=== PATIENT | male | born 1950 | race Two or more races ===

== ENCOUNTER 2018-09-21 09:00 | Inpatient (IN) | payer OTHER ==
[~2018-09-21] VITALS: Ht 172.7 cm; Wt 65.4 kg
[2018-09-21] VITALS (8 sets, daily range): BP systolic 84–116; BP diastolic 55–66
[2018-09-21] MEDS ORDERED: MIDAZOLAM DRIP 50 mg/50mL 50 ML IV ONE (09:02)
[2018-09-21] MEDS: MIDAZOLAM DRIP 50 mg/50mL 50 ML IV SCH (09:03)
[2018-09-21] MEDS ORDERED: NOREPINEPHRINE 8 MG/250ML KIT 250 ML IV ONE (09:07)
[2018-09-21] MEDS: NOREPINEPHRINE 8 MG/250ML KIT 250 ML IV SCH (09:15)
[2018-09-21] MEDS ORDERED: SODIUM CHLORIDE 0.9% 1,000 ML IV ONE (09:40)
[2018-09-21] MEDS ORDERED: PROPOFOL 100 ML IV ONE (10:02)
[2018-09-21] MEDS: PROPOFOL 100 ML IV SCH (10:16)
[2018-09-21 10:57] LABS: Hematocrit 38.2 % (41.0-53.0); Hemoglobin 12.6 g/dL (13.5-17.5); Mean Corpuscular Hemoglobin 33.4 pg (28.0-32.0); Mean Corpuscular Volume 101.2 fL (80.0-100.0); Platelet Count (auto) 321 10^3/uL (140-450); Red Blood Cells 3.77 10^6/uL (4.5-5.90); Red Cell Distribution Width 13.7 % (11.8-14.3)
[2018-09-21] MEDS ORDERED: PIPERACILLIN-TAZOB 3.375GM 100 ML IV ONE (11:00)
[2018-09-21] MEDS ORDERED: VANCOMYCIN 1GM/250ML 250 ML IV ONE (11:00)
[2018-09-21] MEDS ORDERED: ALBUTEROL SULF 2.5 MG/0.5ML(0.5%) NEB SOLN NEB ONE (11:00)
[2018-09-21] MEDS ORDERED: IPRATROPIUM BROM 0.5 MG/2.5ML INH SOL NEB ONE (11:00)
[2018-09-21] MEDS ORDERED: methylPREDNISolone SOD SUCC 125 MG/2 ML VL IV ONE (11:00)
[2018-09-21 11:03] LABS: Basophils % (manual) 0 (0.0-2.0); Blast Cells 0; Eosinophils % (manual) 0 (0-7); Myelocytes % 0; Promyelocytes % 0; Reactive Lymphocytes 0
[2018-09-21 11:05] LABS: Urine Bacteria FEW /hpf (None Seen); Urine Blood Negative /uL (Negative); Urine Hyaline Cast MANY /lpf (0 - 2); Urine Mucus FEW (None Seen); Urine Specific Gravity 1.017 (1.001-1.035); Urine WBC 6 /hpf (0 - 3)
[2018-09-21 11:08] LABS: Calcium 8.3 mg/dL (8.5-10.1); Magnesium 2.5 mg/dL (1.6-2.6)
[2018-09-21 11:14] LABS: BUN/Creatinine Ratio 23.2; Bilirubin, Total 0.2 mg/dL (0.2-1.0); Total Protein 6.3 g/dL (6.4-8.2)
[2018-09-21] MEDS: ALBUTEROL SULF 2.5 MG/0.5ML(0.5%) NEB SOLN NEB SCH ×2 (11:30→18:29)
[2018-09-21] MEDS: IPRATROPIUM BROM 0.5 MG/2.5ML INH SOL NEB SCH ×2 (11:30→18:29)
[2018-09-21] MEDS ORDERED: SODIUM CHLORIDE 0.9% 2,000 ML IV ONE (12:00)
[2018-09-21] MEDS: PIPERACILLIN-TAZOB 3.375GM 100 ML IV SCH ×2 (12:00→18:23)
[2018-09-21] MEDS ORDERED: MORPHINE SULFATE 4 MG/ML SYR/VIAL IV PRN ×3 (12:00)
[2018-09-21] MEDS ORDERED: ALBUTEROL SULF 2.5 MG/0.5ML(0.5%) NEB SOLN NEB PRN (12:00)
[2018-09-21] MEDS ORDERED: ACYCLOVIR 5MG/KG Q8HR PER RX 0 ML IV SCH (12:00)
[2018-09-21] MEDS ORDERED: NITROGLYCERIN 0.4 MG SL TAB SL PRN (12:00)
[2018-09-21] MEDS ORDERED: BACTRIM 5MG/KG Q8HR PER RX 0 ML IV SCH (12:00)
[2018-09-21] MEDS ORDERED: OSELTAMIVIR 75MG/5ML ORAL SUSP GT ONE (12:00)
[2018-09-21] MEDS ORDERED: VANCOMYCIN PER PHARMACY 0 MG IV SCH (12:00)
[2018-09-21] MEDS: methylPREDNISolone SOD SUCC 40 MG/ML VL IV SCH ×2 (12:00→18:23)
[2018-09-21] MEDS ORDERED: PROMETHAZINE HCL 25 MG/ML 1ML IV PRN (12:00)
[2018-09-21] MEDS ORDERED: IPRATROPIUM BROM 0.5 MG/2.5ML INH SOL ONE (12:04)
[2018-09-21] MEDS ORDERED: ALBUTEROL SULF 2.5 MG/0.5ML(0.5%) NEB SOLN ONE (12:04)
[2018-09-21 12:22] LABS: Band Neutrophils % (manual) 24; Lymphocytes % (manual) 14 (10.0-50.0); Metamyelocytes % 5; Monocytes % (manual) 23 (0-12)
[2018-09-21] MEDS: FLUCONAZOLE 200MG/100ML 100 ML IV SCH ×2 (13:28→14:24)
[2018-09-21] MEDS: SODIUM CHLORIDE 0.9% 1,000 ML IV SCH ×2 (13:59→23:49)
[2018-09-21] MEDS: SULFAMETH-TRIMETH 80/16MG-ML 25 ML in D5W 5% 500 ML IV SCH ×2 (14:10→22:00)
[2018-09-21] MEDS ORDERED: ACYCLOVIR SOD IV SCH ×2 (16:00)
[2018-09-21] MEDS ORDERED: D5W 5% IV SCH ×2 (16:00)
[2018-09-21] MEDS ORDERED: D5W 5% IV ONE (16:01)
[2018-09-21] MEDS ORDERED: ACYCLOVIR SOD IV ONE (16:01)
[2018-09-21] MEDS: VANCOMYCIN 1,500 MG in D5W 5% 250 ML IV SCH (17:10)
[2018-09-21] MEDS: OSELTAMIVIR 75MG/5ML ORAL SUSP GT SCH (22:00)
[2018-09-22] VITALS (12 sets, daily range): BP systolic 96–114; BP diastolic 55–67
[2018-09-22] MEDS: ALBUTEROL SULF 2.5 MG/0.5ML(0.5%) NEB SOLN NEB SCH ×4 (00:26→19:29)
[2018-09-22] MEDS: IPRATROPIUM BROM 0.5 MG/2.5ML INH SOL NEB SCH ×4 (00:26→19:29)
[2018-09-22] MEDS: PIPERACILLIN-TAZOB 3.375GM 100 ML IV SCH ×4 (01:03→18:17)
[2018-09-22] MEDS: ACYCLOVIR SOD IV SCH ×2 (04:11→15:59)
[2018-09-22] MEDS: SODIUM CHLORIDE 0.9% 1,000 ML IV SCH ×3 (04:11→22:29)
[2018-09-22] MEDS: D5W 5% IV SCH ×2 (04:11→15:59)
[2018-09-22] MEDS: methylPREDNISolone SOD SUCC 40 MG/ML VL IV SCH ×4 (05:44→17:33)
[2018-09-22] MEDS: SULFAMETH-TRIMETH 80/16MG-ML 25 ML in D5W 5% 500 ML IV SCH ×3 (05:44→22:29)
[2018-09-22 06:35] LABS: Hemoglobin 9.8 g/dL (13.5-17.5); White Blood Cell 2.7 10^3/uL (4.4-10.8)
[2018-09-22 06:39] LABS: Hematocrit 28.7 % (41.0-53.0); Mean Corpuscular Hemoglobin 34.1 pg (28.0-32.0); Mean Corpuscular Hgb Conc. 34.3 g/dL (32.0-36.0); Mean Corpuscular Volume 99.4 fL (80.0-100.0); Platelet Count (auto) 171 10^3/uL (140-450); Red Blood Cells 2.88 10^6/uL (4.5-5.90); Red Cell Distribution Width 13.7 % (11.8-14.3)
[2018-09-22 06:46] LABS: Basophils % (manual) 0 (0.0-2.0); Blast Cells 0; Eosinophils % (manual) 0 (0-7); Promyelocytes % 0; Reactive Lymphocytes 0
[2018-09-22 06:49] LABS: Albumin 2.2 g/dL (3.4-5.0); Potassium 4.1 mmol/L (3.5-5.1)
[2018-09-22 06:55] LABS: Bilirubin, Total 0.2 mg/dL (0.2-1.0); Total Protein 5.2 g/dL (6.4-8.2)
[2018-09-22 07:10] LABS: Band Neutrophils % (manual) 13; Lymphocytes % (manual) 10 (10.0-50.0); Monocytes % (manual) 25 (0-12)
[2018-09-22 07:11] LABS: Metamyelocytes % 8; Myelocytes % 7
[2018-09-22] MEDS: NOREPINEPHRINE 8 MG/250ML KIT 250 ML IV SCH ×2 (09:48→22:00)
[2018-09-22] MEDS: MIDAZOLAM DRIP 50 mg/50mL 50 ML IV SCH ×2 (09:48→20:10)
[2018-09-22] MEDS: OSELTAMIVIR 75MG/5ML ORAL SUSP GT SCH ×2 (09:49→22:00)
[2018-09-22] MEDS: FLUCONAZOLE 200MG/100ML 100 ML IV SCH ×2 (10:07→11:03)
[2018-09-22] MEDS: ENOXAPARIN SOD 40 MG/0.4 ML SYRINGE SC SCH (10:10)
[2018-09-22] MEDS: PROPOFOL 100 ML IV SCH (10:10)
[2018-09-22] MEDS ORDERED: DEXTROSE (50%) 50ML SYRG IV PRN (12:00)
[2018-09-22] MEDS: AZITHROMYCIN 500MG/ 250ML 250 ML IV SCH (12:09)
[2018-09-22] MEDS: ACCU-CHEK COMFORT CURVE STRIP VI SCH ×2 (12:26→17:33)
[2018-09-22] MEDS: InsuLIN REG 1unit/0.01ml Soln (100units/ml) SC SCH ×2 (12:26→17:33)
[2018-09-22] MEDS: VANCOMYCIN 1,500 MG in D5W 5% 250 ML IV SCH (17:22)
[2018-09-23] VITALS (33 sets, daily range): BP systolic 86–112; BP diastolic 42–68
[2018-09-23] MEDS: IPRATROPIUM BROM 0.5 MG/2.5ML INH SOL NEB SCH ×3 (00:10→18:55)
[2018-09-23] MEDS: ALBUTEROL SULF 2.5 MG/0.5ML(0.5%) NEB SOLN NEB SCH ×3 (00:10→18:55)
[2018-09-23] MEDS: PIPERACILLIN-TAZOB 3.375GM 100 ML IV SCH ×4 (00:14→18:50)
[2018-09-23] MEDS: methylPREDNISolone SOD SUCC 40 MG/ML VL IV SCH ×5 (00:14→18:50)
[2018-09-23] MEDS: ACCU-CHEK COMFORT CURVE STRIP VI SCH ×5 (00:14→23:54)
[2018-09-23] MEDS: PROPOFOL 100 ML IV SCH ×2 (00:50→19:56)
[2018-09-23] MEDS: MIDAZOLAM DRIP 50 mg/50mL 50 ML IV SCH ×2 (02:23→19:57)
[2018-09-23] MEDS: ACYCLOVIR SOD IV SCH ×2 (04:20→16:09)
[2018-09-23] MEDS: D5W 5% IV SCH ×2 (04:20→16:09)
[2018-09-23] MEDS: SODIUM CHLORIDE 0.9% 1,000 ML IV SCH ×3 (05:44→20:00)
[2018-09-23] MEDS: SULFAMETH-TRIMETH 80/16MG-ML 25 ML in D5W 5% 500 ML IV SCH ×3 (06:06→22:29)
[2018-09-23] MEDS: InsuLIN REG 1unit/0.01ml Soln (100units/ml) SC SCH ×4 (06:16→17:59)
[2018-09-23 07:46] LABS: Albumin 1.8 g/dL (3.4-5.0); BUN/Creatinine Ratio 17.1; Calcium 6.1 mg/dL (8.5-10.1); Potassium 4.1 mmol/L (3.5-5.1)
[2018-09-23 07:49] LABS: Bilirubin, Total 0.2 mg/dL (0.2-1.0); Total Protein 4.5 g/dL (6.4-8.2)
[2018-09-23 08:01] LABS: Hemoglobin 8.2 g/dL (13.5-17.5); Mean Corpuscular Hemoglobin 34.8 pg (28.0-32.0); Mean Corpuscular Hgb Conc. 35.8 g/dL (32.0-36.0); Mean Corpuscular Volume 97.4 fL (80.0-100.0); Platelet Count (auto) 143 10^3/uL (140-450); Red Blood Cells 2.37 10^6/uL (4.5-5.90); White Blood Cell 2.1 10^3/uL (4.4-10.8)
[2018-09-23 08:06] LABS: Basophils % (manual) 0 (0.0-2.0); Blast Cells 0; Eosinophils % (manual) 0 (0-7); Promyelocytes % 0; Reactive Lymphocytes 0
[2018-09-23] MEDS ORDERED: ALLO100T PO (09:42)
[2018-09-23] MEDS ORDERED: MAGN400T5 PO (09:42)
[2018-09-23] MEDS ORDERED: [UNRECOGNIZED DRUG - CODE] EACHEYE (09:42)
[2018-09-23] MEDS ORDERED: AZIT250T7 PO (09:42)
[2018-09-23] MEDS ORDERED: LATA0.0015 LEFTEYE (09:42)
[2018-09-23] MEDS ORDERED: POSA1TAB PO (09:42)
[2018-09-23] MEDS ORDERED: ESCI5TAB PO (09:42)
[2018-09-23] MEDS ORDERED: CETI10CA PO (09:42)
[2018-09-23] MEDS ORDERED: TACR0.5C15 OR (09:42)
[2018-09-23] MEDS ORDERED: MYCO180T PO (09:42)
[2018-09-23] MEDS ORDERED: PRAV20TA3 PO (09:42)
[2018-09-23] MEDS ORDERED: PANT1INJ3 PO (09:42)
[2018-09-23] MEDS ORDERED: AML5T PO (09:42)
[2018-09-23] MEDS ORDERED: VALG1TAB PO (09:42)
[2018-09-23] MEDS ORDERED: METO10TA3 PO (09:42)
[2018-09-23] MEDS ORDERED: CALC-485 PO (09:42)
[2018-09-23] MEDS: FLUCONAZOLE 200MG/100ML 100 ML IV SCH ×2 (09:50→11:07)
[2018-09-23] MEDS: ENOXAPARIN SOD 40 MG/0.4 ML SYRINGE SC SCH (09:50)
[2018-09-23] MEDS: AZITHROMYCIN 500MG/ 250ML 250 ML IV SCH (09:50)
[2018-09-23] MEDS ORDERED: TACROLIMUS 0.5 MG CAP NG SCH (10:00)
[2018-09-23] MEDS: LINEZOLID 600MG/300ML 300 ML IV SCH ×2 (10:13→22:31)
--- NOTE | 2018-09-23 13:42 | NUR ---
NUTRITION ASSESSMENT NOTES Please refer to link notes of nutrition screen form filed under the intervention section of the plan of care for further details. Est. Needs based on IBW (70 kg): 1750 kcal to 2100 kcal (25-30 kcal/kgIBW), 70 gms to 98 gms pro (1.0-1.4 gms/kgIBW d/t severe hypoalbuminemia). Will continue to monitor pertinent labs and reassess nutrient need prn Thank you. Addendum: 09/23/18 at [address] Amended: Links added.
[2018-09-23 13:53] LABS: Band Neutrophils % (manual) 25; Lymphocytes % (manual) 13 (10.0-50.0); Myelocytes % 5
[2018-09-23 13:54] LABS: Metamyelocytes % 8; Monocytes % (manual) 15 (0-12)
[2018-09-23] MEDS: LATANOPROST 0.005 % OPTH(EYE) SOL 2.5ML LEFTEYE SCH (18:00)
[2018-09-23] MEDS ORDERED: LATANOPROST LEFTEYE SCH (18:00)
--- NOTE | 2018-09-23 18:30 | NUR ---
Admit to ICU from ER on vent TIA VARGHESE admitted to ICU via gurney on patient monitor, intubated and being bagged by Respiratory Therapist. Patient transferred to bed 109, connected to mechanical ventilator by therapist, JENNIFER at bedside. Patient connected to ICU monitoring, sinus rhythm 80's, weighed by bedscale, oriented to Adri Whitehead primary RN, unit, ventilator and sedation. Lungs clear but diminished anteriorly. Brown thick sputum noted in oral cavity. Patient tolerating vent, but respiratory rate increased to 30's despite sedation. Pupils reactive to light but no cough or gag noted at this time. Bowel sounds noted. See skin assessment. Optifoam placed on sacrum, SCD's on bilateral lower extremities with heels elevated on pillows. Bed locked in lowest position with call light within reach. Continue to monitor.
--- NOTE | 2018-09-23 18:40 | NUR ---
WOUND CARE Patient has pressure area on sacrum and back. Photo's taken and wound care consult placed. Patient repositioned on side.
--- NOTE | 2018-09-23 19:35 | NUR ---
INITIAL CONTACT ASSUMED CARE OF PATIENT PATIENT RECEIVED LAYING ON BED ON MECHANICAL VENTILATION AND SEDATED ON VERSED AND PROPOFOL. PATIENT DOES NOT RESPOND TO STIMULATION AT THIS TIME. HYPOACTIVE COUGH/GAG NOTED. HOB ELEVATED TO 45 DEGREES FOR ASPIRATION PRECAUTIONS/VAP PROTOCOL. VITAL SIGNS SHOW HYPOTENSION. VENTILATOR PLUGGED INTO RED OUTLET, AMBU BAG AT BEDSIDE, ETT SECURED WITH ANCHOR FAST BLANCA, ORAL CARE AND SUCTION PROVIDED, NOTED TRIPLE LUMEN PICC TO RIGHT IJ, PATENT AND INTACT W/NO S/S OF INFILTRATION OR PHLEBITIS, RUNNING MULTIPLE IV INFUSIONS, REFER TO IV SPREADSHEET FOR TITRATION SPECIFICS. NOTED 20 G IV RIGHT HAND, HEP LOCKED AND 22 G IV LEFT HAND, PATENT, INTACT AND ASYMPTOMATIC FLUSHED WITH 10 CC SALINE FLUSH. PETERS CATHETER INTACT AND DRAINING TO GRAVITY. OG TUBE AUSCULTATED AND IN PLACE. NO INDICATION OF PAIN AT THIS TIME. NO S/S OF DISTRESS NOTED. BED IN LOWEST LOCKED POSITION, SIDE RAILS UP X 2. PATIENT IN FULL VIEW OF NURSES STATION, SAFETY MAINTAINED, WILL CONTINUE TO MONITOR
--- NOTE | 2018-09-23 19:38 | NUR ---
REPORT Report given to Cate CORBETT, care endorsed.
--- NOTE | 2018-09-23 21:00 | NUR ---
FAMILY AT BEDSIDE DISCUSSED PLAN OF CARE WITH FAMILY ALL QUESTIONS AND CONCERNS WERE ADDRESSED
[2018-09-23] MEDS: MYCOPHENOLATE 180 MG PO SCH (22:00)
[2018-09-23] MEDS ORDERED: KETOTIFEN FUMARATE EACHEYE SCH (22:00)
[2018-09-23] MEDS ORDERED: MYCOPHENOLATE SODIUM 180 MG PO SCH (22:00)
[2018-09-23] MEDS: KETOTIFEN 0.025% OP SCH (22:30)
--- NOTE | 2018-09-23 22:31 | NUR ---
MEDICATION HELD MYCOPHENOLATE HELD, MEDICATION CANNOT BE CRUSHED OPENED OR CHEWED PATIENT IS INTUBATED/SEDATED AT THIS TIME, ONLY ACCESS TO OG TUBE UNABLE TO ADMINISTER
[2018-09-24] VITALS (85 sets, daily range): BP systolic 66–130; BP diastolic 34–86
[2018-09-24] MEDS: InsuLIN REG 1unit/0.01ml Soln (100units/ml) SC SCH ×5 (00:03→23:53)
[2018-09-24] MEDS: PIPERACILLIN-TAZOB 3.375GM 100 ML IV SCH ×3 (00:12→11:26)
[2018-09-24] MEDS: IPRATROPIUM BROM 0.5 MG/2.5ML INH SOL NEB SCH ×4 (00:19→18:30)
[2018-09-24] MEDS: ALBUTEROL SULF 2.5 MG/0.5ML(0.5%) NEB SOLN NEB SCH ×4 (00:19→18:30)
[2018-09-24] MEDS: NOREPINEPHRINE 8 MG/250ML KIT 250 ML IV SCH ×4 (00:35→18:30)
--- NOTE | 2018-09-24 02:00 | NUR ---
Patient bathe/linen change Patient given complete bath. Skin integrity assessed for any changes. Linens changed. Patient repositioned for comfort. Gown change. Noted scrotal edema, arms bilateral wheeping, ABD LRQ wheeping, additional chucks were place under both arms. all canisters, suction tubing were replaced. patient does not appear to be in distress at this time. Safety maintained, will continue to monitor
[2018-09-24] MEDS: SODIUM CHLORIDE 0.9% 1,000 ML IV SCH ×3 (02:15→19:57)
[2018-09-24] MEDS: MIDAZOLAM DRIP 50 mg/50mL 50 ML IV SCH ×4 (02:15→22:00)
[2018-09-24 03:52] LABS: Hematocrit 24.8 % (41.0-53.0); Hemoglobin 8.6 g/dL (13.5-17.5); Mean Corpuscular Hemoglobin 33.9 pg (28.0-32.0); Mean Corpuscular Hgb Conc. 34.9 g/dL (32.0-36.0); Mean Corpuscular Volume 97.4 fL (80.0-100.0); Platelet Count (auto) 184 10^3/uL (140-450); Red Blood Cells 2.55 10^6/uL (4.5-5.90); Red Cell Distribution Width 14.1 % (11.8-14.3); White Blood Cell 3.3 10^3/uL (4.4-10.8)
--- NOTE | 2018-09-24 03:55 | NUR ---
CALL PLACED TO DR. HENRY SPOKE TO DUE TO PT ABG PC02 OF 53.4 QUESTION TO IS SHOULD WE INCREASE THE TIDAL VOLUME TO [address] Emery. IF PATIENT IS NOT IN DISTRESS DO NOT INCREASE THE TV. VENT SETTINGS TO REMAIN IS.
[2018-09-24 04:13] LABS: Potassium 4.5 mmol/L (3.5-5.1)
[2018-09-24 04:23] LABS: Albumin 2.1 g/dL (3.4-5.0); BUN/Creatinine Ratio 16.2; Bilirubin, Total 0.2 mg/dL (0.2-1.0); Total Protein 4.9 g/dL (6.4-8.2)
[2018-09-24 04:35] LABS: Basophils % (manual) 0 (0.0-2.0); Blast Cells 0; Promyelocytes % 0; Reactive Lymphocytes 0
--- NOTE | 2018-09-24 04:40 | NUR ---
CALL RECEIVED FROM DR. RIDLEY PER TIDAL VOLUME IS TO BE INCREASED TO 500, ORDER STAT X-RAY AND REPEAT THE ABG IN TWO HOURS
--- NOTE | 2018-09-24 04:48 | NUR ---
Respiratory note: CHELLE DUENAS SPOKE ON PHONE WITH DR. RIDLEY. GAVE ORDER TO INCREASE THE TIDAL VOLUME TO 500. ABG IN TWO HOURS AFTER CHANGE IS MADE.
[2018-09-24] MEDS: ACYCLOVIR SOD IV SCH (05:03)
[2018-09-24] MEDS: D5W 5% IV SCH (05:03)
[2018-09-24 06:46] LABS: Band Neutrophils % (manual) 17; Eosinophils % (manual) 1 (0-7); Lymphocytes % (manual) 2 (10.0-50.0); Metamyelocytes % 1; Monocytes % (manual) 7 (0-12); Myelocytes % 1
[2018-09-24] MEDS: SULFAMETH-TRIMETH 80/16MG-ML 25 ML in D5W 5% 500 ML IV SCH ×3 (07:00→22:35)
[2018-09-24] MEDS: methylPREDNISolone SOD SUCC 40 MG/ML VL IV SCH ×3 (07:00→18:04)
--- NOTE | 2018-09-24 07:35 | NUR ---
OPENING SHIFT NOTE Report received from Cate CORBETT, care assumed. Patient is intubated on ventilator. Pupils brisk and reactive to light, cough/gag hypoactive. Temp 98.4 rectally. Sedation: Versed and Diprivan. Pulses palpable, sinus rhythm 90's bedside monitor. Blood pressure stable on Levophed gtt 15 mcg. Edema on upper and lower extremities. SCD's on bilateral lower extremities, heels elevated on pillows. Lungs clear/diminished anteriorly. Tolerating vent at this time, oxygenation 98%. Bowel sounds noted, Hernandez catheter patent, hung below bladder. See skin assessment. Central line TLC noted right IJ. Bed locked in lowest position with call light within reach. Alarms in place. Continue to monitor.
[2018-09-24] MEDS: ACCU-CHEK COMFORT CURVE STRIP VI SCH ×4 (07:40→23:41)
--- NOTE | 2018-09-24 08:00 | NUR ---
RT Respiratory therapist at bedside for follow up ABG.
--- NOTE | 2018-09-24 08:03 | NUR ---
URINE SAMPLE Night CHELLE Esposito walking urine creatinine and sodium to lab due to bullet system being down.
--- NOTE | 2018-09-24 08:44 | NUR ---
PULMONOLOGY PAGED Dr. Arnoldo Valderrama paged to notify of ABG and chest x-ray results. Awaiting call back.
[2018-09-24 08:53] LABS: Protein, Urine 85.9 mg/dL (0.0-11.9)
[2018-09-24] MEDS ORDERED: IPRIH INH (09:06)
[2018-09-24] MEDS ORDERED: IPRAAER6 IN (09:06)
--- NOTE | 2018-09-24 09:07 | NUR ---
FAMILY and sister at bedside. All questions addressed
[2018-09-24] MEDS: FLUCONAZOLE 200MG/100ML 100 ML IV SCH ×2 (09:21→10:46)
[2018-09-24] MEDS: ENOXAPARIN SOD 40 MG/0.4 ML SYRINGE SC SCH (09:21)
[2018-09-24] MEDS: PRAVASTATIN SODIUM 20 MG TAB PO SCH (09:22)
[2018-09-24] MEDS: AZITHROMYCIN 500MG/ 250ML 250 ML IV SCH (09:27)
--- NOTE | 2018-09-24 09:37 | NUR ---
NEPHROLOGY ROUNDS Dr. Lim at bedside speaking with patients regarding plan of care. He is notifying her that we cannot give patient anti-rejection medication due to it not being able to be crushed, iv form can be given but lab values must be checked daily for toxicity, and our hospital does not have that capability at this time. MD pushing to have patient transferred to higher level of care that can provide anti-rejection treatment. New orders received.
[2018-09-24] MEDS ORDERED: FUROSEMIDE 40 MG/4 ML VIAL IV ONE (09:45)
[2018-09-24] MEDS: KETOTIFEN 0.025% OP SCH ×2 (10:00→22:32)
[2018-09-24] MEDS: MYCOPHENOLATE 180 MG PO SCH ×2 (10:00→12:34)
--- NOTE | 2018-09-24 10:26 | NUR ---
PHARMACY Spoke with Gaby RIOS regarding changing mixing NS versus D2 for patient antibiotics to increase sodium intake. he stated he will try if abx are compatible. also notified to bring eye drops in so we can administer today.
--- NOTE | 2018-09-24 10:30 | NUR ---
WOUND CARE NOTE: Wound care in to see patient per wound care request regarding "Low Lyndon score of 11 and pressure area on sacrum" that are noted by ICU nurse upon arrival. Bedside nurse took photograph of patient's skin integrity issue for reference. Patient is 67 years old male with admitting diagnosis of Acute Resp Failure. Patient has history of lung transplant a few weeks ago, hx of HDL, htn, gout, glaucoma. Patient is resting in ICU premium bed in Rm. 109. Patient is intubated, sedated and mechanically ventilated . Patient appears to be in no pain using Walls Rick Faces Pain Scale. Skin assessment done with the assistance of another nurse, CHELLE Orellana. Noted patient's bilateral arm has scattered ecchymosis and both arms are edematous. Superficial abrasion also noted to patient's R medial back with pink surrounding skin, area is clean and dry, left open to air. Patient's medial sacrum has intact skin with 2x2cm area with non-blanchable redness consistent with Stage 1 pressure injury. Doris care given, applied Z Guard cream and covered sacrum with Opti foam sacral dressing. Repositioned patient for comfort facing his Lt side, redistributed pressure points with pillows and elevated BLE and edematous arms on pillows. Patient tolerated well. Patient's at bedside. RECOMMENDATION: BID/PRN cleaning and application of Z Guard cream to sacral/buttocks per MD order,Dietary consult for Low Lyndon score, frequent turning and repositioning schedule as condition permits, redistribute pressure points with pillows, elevate heels and edematous extremities on pillows, continue monitoring by wound care while patient is hospitalized. Addendum: 09/24/18 at 1526 by Hannah Vazquez RN Amended: Links added.
--- NOTE | 2018-09-24 10:46 | NUR ---
WOUND CARE Wound care nurse Hannah at bedside for skin assessment.
[2018-09-24] MEDS ORDERED: TACROLIMUS 0.5 MG CAP PO SCH (11:00)
--- NOTE | 2018-09-24 11:00 | NUR ---
ROUNDS at bedside speaking with regarding plan of care. New orders received.
[2018-09-24] MEDS: LINEZOLID 600MG/300ML 300 ML IV SCH ×2 (12:25→22:34)
--- NOTE | 2018-09-24 12:49 | NUR ---
NOTIFIED notified and stephanie that patient medication mycophenolic acid cannot be crushed so he will not be able to receive one of the anti-rejection medications. He is aware.
--- NOTE | 2018-09-24 13:19 | NUR ---
VERÓNICA Attempting to get a hold of [place] Aide at [place]. Currently attempting to page due to not being able to get through lung clinic. Lung clinic [phone] [facility]: [phone]
--- NOTE | 2018-09-24 13:30 | NUR ---
MD SILVESTRE Pappas called with dynamics ax consultant ornamental iron erector on the line trying to get a hold of . I called his cell number 2 times, each time no answer, notifying him that Mian was trying to get a hold of him.No answer.
--- NOTE | 2018-09-24 15:31 | NUR ---
I called VER[facility]NICA and spoke with [id number] said she would have the assigned case making machine operator give me a call but that I need to contact [facility] directly regarding the transfer. I called [facility] and spoke with Jemima, provided her with contact information for both the nurse's station as well as Dr. Zhang, faxed her requested clinical information.
--- NOTE | 2018-09-24 16:24 | NUR ---
Re-faxed clinical information to [facility] per their request to [phone].
[2018-09-24] MEDS: ACYCLOVIR SOD 50MG/ML 500 MG in SODIUM CHL 0.9% 250 ML IV SCH (16:25)
--- NOTE | 2018-09-24 17:34 | NUR ---
[place]NA SERVICE CORRESPONDENT Spoke with (patient primary pulm) She stated that we need to call the on-call transplant laborer/grade check, have him/her speak with or regarding transfer. If he/she decided to accept patient, then [place] will contact us regarding transfer. Will endorse care to night rn to relay message for nurse tomorrow.
--- NOTE | 2018-09-24 18:00 | NUR ---
CENTRAL LINE Right IJ central line dressing change performed with clean, sterile technique. New dressing is clean, dry, and intact.
[2018-09-24] MEDS: LATANOPROST 0.005 % OPTH(EYE) SOL 2.5ML LEFTEYE SCH (18:04)
[2018-09-24] MEDS: PIPERACILLIN TAZOB IV SCH (18:29)
[2018-09-24] MEDS: SODIUM CHL 0.9% IV SCH (18:29)
--- NOTE | 2018-09-24 18:45 | NUR ---
BLOOD PRESSURE PATIENT CURRENTLY MAPPING UNDER 45, WILL TITRATED LEVOPHED UNTIL MAP IS ABOVE 65, SEE IV SPREADSHEET FOR TITRATIONS
[2018-09-24] MEDS ORDERED: Glucerna 1.2 Cal 1Liter BOTTLE GT SCH (19:15)
--- NOTE | 2018-09-24 19:30 | NUR ---
INITIAL CONTACT ASSUMED CARE OF PATIENT PATIENT RECEIVED LAYING ON BED ON MECHANICAL VENTILATION AND SEDATED ON VERSED AND PROPOFOL. PATIENT SOES NOT RESPOND TO STIMULATION AT THIS TIME. HYPOACTIVE COUGH/GAG NOTED. HOB ELEVATED TO 45 DEGREES FOR ASPIRATION PRECAUTIONS/VAP PROTOCOL. VITAL SIGNS SHOW HYPOTENSION. VENTILATOR PLUGGED INTO RED OUTLET, AMBU BAG AT BEDSIDE, ETT SECURED WITH ANCHOR FAST BLANCA, ORAL CARE AND SUCTION PROVIDED, NOTED TRIPLE LUMEN PICC TO RIGHT IJ, PATENT AND INTACT W/NO S/S OF INFILTRATION OR PHLEBITIS, RUNNING MULTIPLE IV INFUSIONS, REFER TO IV SPREADSHEET FOR TITRATION SPECIFICS. NOTED 20 G IV RIGHT HAND, HEP LOCKED AND 22 G IV LEFT HAND, PATENT, INTACT AND ASYMPTOMATIC FLUSHED WITH 10 CC SALINE FLUSH. PETERS CATHETER INTACT AND DRAINING TO GRAVITY. OG TUBE AUSCULTATED AND IN PLACE. NO INDICATION OF PAIN AT THIS TIME. NO S/S OF DISTRESS NOTED. BED IN LOWEST LOCKED POSITION, SIDE RAILS UP X 2. PATIENT IN FULL VIEW OF NURSES STATION, SAFETY MAINTAINED, WILL CONTINUE TO MONITOR
--- NOTE | 2018-09-24 19:38 | NUR ---
TEMPERATURE PER RECTAL PROBE, PATIENT CURRENT TEMP IS 96.6, ORAL TEMP TAKEN 98.6 AT THIS TIME, WILL CONTINUE TO MONITOR PATIENT IS ASYMPTOMATIC. SAFETY MAINTAINED, WILL CONTINUE TO MONITOR
[2018-09-24] MEDS ORDERED: MYCOPHENOLATE 180 MG PO SCH (22:00)
[2018-09-24] MEDS: TACROLIMUS 0.5 MG PO SCH (22:32)
[2018-09-24] MEDS: PROPOFOL 100 ML IV SCH (23:59)
[2018-09-25] VITALS (104 sets, daily range): BP systolic 86–117; BP diastolic 41–60
[2018-09-25] MEDS: PIPERACILLIN TAZOB IV SCH ×4 (00:05→17:35)
[2018-09-25] MEDS: SODIUM CHL 0.9% IV SCH ×4 (00:05→17:35)
[2018-09-25] MEDS: ALBUTEROL SULF 2.5 MG/0.5ML(0.5%) NEB SOLN NEB SCH ×4 (00:12→19:01)
[2018-09-25] MEDS: IPRATROPIUM BROM 0.5 MG/2.5ML INH SOL NEB SCH ×4 (00:12→19:01)
[2018-09-25] MEDS: SODIUM CHLORIDE 0.9% 1,000 ML IV SCH (03:57)
[2018-09-25] MEDS: ACYCLOVIR SOD 50MG/ML 500 MG in SODIUM CHL 0.9% 250 ML IV SCH ×2 (04:00→16:28)
[2018-09-25 04:04] LABS: Hemoglobin 8.4 g/dL (13.5-17.5); Platelet Count (auto) 198 10^3/uL (140-450)
[2018-09-25 04:07] LABS: Hematocrit 23.6 % (41.0-53.0); Mean Corpuscular Hemoglobin 34.3 pg (28.0-32.0); Mean Corpuscular Hgb Conc. 35.7 g/dL (32.0-36.0); Mean Corpuscular Volume 95.8 fL (80.0-100.0); Red Blood Cells 2.46 10^6/uL (4.5-5.90); White Blood Cell 3.3 10^3/uL (4.4-10.8)
[2018-09-25 04:13] LABS: Chloride 89 mmol/L (98-107); Potassium 4.8 mmol/L (3.5-5.1)
[2018-09-25 04:19] LABS: Alanine Aminotransferase 19 U/L (16-61); Albumin 1.9 g/dL (3.4-5.0); Alkaline Phosphatase 43 U/L (45-117); Anion Gap 12 (5-15); Aspartate Aminotransferase 32 U/L (15-37); BUN/Creatinine Ratio 13.5; Bilirubin, Direct < 0.1 mg/dL (0-0.2); Bilirubin, Total 0.2 mg/dL (0.2-1.0); Blood Urea Nitrogen 38 mg/dL (7-18); Carbon Dioxide 18 mmol/L (21-32); GFR African American 29 mL/min; GFR Non-African American 24 mL/min; Glucose 167 mg/dL (74-106); Magnesium 1.9 mg/dL (1.6-2.6); Total Protein 4.6 g/dL (6.4-8.2)
[2018-09-25 05:09] LABS: Calcium 5.5 mg/dL (8.5-10.1); Sodium 119 mmol/L (136-145)
[2018-09-25 05:49] LABS: Basophils % (manual) 0 (0.0-2.0); Blast Cells 0; Eosinophils % (manual) 0 (0-7); Myelocytes % 0; Promyelocytes % 0; Reactive Lymphocytes 0
[2018-09-25] MEDS ORDERED: PIPERACILLIN-TAZOB 3.375GM 100 ML IV ONE (05:49)
[2018-09-25] MEDS: ACCU-CHEK COMFORT CURVE STRIP VI SCH ×3 (05:50→17:35)
[2018-09-25] MEDS: methylPREDNISolone SOD SUCC 40 MG/ML VL IV SCH ×5 (06:00→23:00)
[2018-09-25] MEDS: SULFAMETH-TRIMETH 80/16MG-ML 25 ML in D5W 5% 500 ML IV SCH (06:00)
[2018-09-25] MEDS: InsuLIN REG 1unit/0.01ml Soln (100units/ml) SC SCH ×3 (07:00→18:00)
[2018-09-25 07:37] LABS: Band Neutrophils % (manual) 15; Lymphocytes % (manual) 1 (10.0-50.0); Metamyelocytes % 1; Monocytes % (manual) 16 (0-12)
[2018-09-25] MEDS: NOREPINEPHRINE 8 MG/250ML KIT 250 ML IV SCH ×3 (07:55→17:15)
[2018-09-25] MEDS: PROPOFOL 100 ML IV SCH (07:55)
[2018-09-25] MEDS: MIDAZOLAM DRIP 50 mg/50mL 50 ML IV SCH ×2 (07:56→17:08)
--- NOTE | 2018-09-25 08:48 | NUR ---
I called [facility] transfer center [phone] and was told that they are not accepting this patient for transfer due to the transplant being over 2 years ago and patient has been non compliant with follow up care at [facility]. [facility] told me that patient needs to be transferred to [place] and they can request a transfer after they assess the patient. I placed a page out to Dr. Zhang to discuss the plan of care for this patient/transfer request.
[2018-09-25] MEDS ORDERED: SODIUM CHL 3% 500 ML IV ONE (09:00)
--- NOTE | 2018-09-25 09:10 | NUR ---
PAGED DR RIDLEY TO UPDATE ON PATIENT'S ABG AND MORNING LABS. MESSAGE LEFT WITH OFFICE STAFF, AWAITING RESPONSE.
--- NOTE | 2018-09-25 10:15 | NUR ---
DR RIDLEY/DR PHELAN AT BEDSIDE UPDATED ON PATIENT'S STATUS, LABS AND ABG. ORDERS FOR ECHO RECEIVED. NO VENT CHANGES AT THIS TIME. DR RIDLEY DISCUSSED PLAN OF CARE WITH PATIENT SPOUSE AT BEDSIDE AND DR PHELAN. 10:36 DR PHELAN AT BEDSIDE, UPDATED ON STATUS, ORDERS PREVIOUSLY RECEIVED AND CARRIED OUT. FURTHER VERBAL ORDERS RECEIVED. PATIENT DISCUSSED DNR WITH BOTH DOCTORS.
--- NOTE | 2018-09-25 10:30 | NUR ---
I spoke with Dr. Zhang regarding the plan of care for this patient-she is ordering transfer to [facility]. I faxed updated clinical information to [facility] as well as transfer order.
[2018-09-25] MEDS: ENOXAPARIN SOD 30 MG/0.3 ML SYRINGE SC SCH (10:48)
[2018-09-25] MEDS: AZITHROMYCIN 500MG 500 MG in SODIUM CHL 0.9% 250 ML IV SCH (10:49)
[2018-09-25] MEDS: KETOTIFEN 0.025% OP SCH ×2 (11:15→21:44)
[2018-09-25] MEDS: PRAVASTATIN SODIUM 20 MG TAB PO SCH (11:16)
--- NOTE | 2018-09-25 11:35 | NUR ---
MANUFACTURING BAKER AT BEDSIDE
[2018-09-25] MEDS ORDERED: BUMETANIDE (0.25MG/ML) 4 ML VIAL IV ONE (11:45)
--- NOTE | 2018-09-25 11:56 | NUR ---
DR MORRIS AT BEDSIDE DR MORRIS DISCUSSED POC WITH DR PHELAN, DOCTOR WAS ALSO UPDATED ON PATIENT'S STATUS. DR FRIEDMAN ORDERED TO BE CALLED ONCE FAMILY COMES IN TO DISCUSS PLAN OF CARE. PATIENT'S SPOUSE NO LONGER AT BEDSIDE AT THIS TIME.
[2018-09-25] MEDS: ALBUMIN 25% 100 ML IV SCH ×2 (12:05→21:30)
[2018-09-25] MEDS ORDERED: SODIUM BICARBONATE 50ML VIAL 150 ML in D5W 5% 1,000 ML IV SCH ×2 (12:15→20:00)
[2018-09-25 12:31] LABS: Potassium 5.2 mmol/L (3.5-5.1)
--- NOTE | 2018-09-25 12:31 | NUR ---
FAMILY AT BEDSIDE/WILL RETURN PATIENT'S SPOUSE AT BEDSIDE, NOTIFIED SPOUSE THAT DR MORRIS WANTED TO SPEAK WITH HER, SHE STATED "I HAVE A DOCTOR'S APPOINTMENT AT 1:00 AND WILL RETURN AFTERWARDS".
[2018-09-25 12:35] LABS: Calcium 5.5 mg/dL (8.5-10.1)
--- NOTE | 2018-09-25 12:35 | NUR ---
CRITICAL CHEMISTRY/PAGED DR PHELAN CURRENT SODIUM 117, CALCIUM 5.5. PAGED DR PHELAN TO NOTIFY. MESSAGE LEFT WITH MELANIE AT ANSWERING SERVICE, AWAITING RESPONSE.
[2018-09-25 12:37] LABS: BUN/Creatinine Ratio 13.1
[2018-09-25] MEDS: TACROLIMUS 0.5 MG PO SCH ×2 (12:48→21:45)
--- NOTE | 2018-09-25 12:50 | NUR ---
Nutrition Consult/Follow-up Notes Wt.: 78.6 kg Pt continues to be intubated sedated with propofol @ 9.78 ml/hr providing 258 kcals from fats. pt is currently NPO and per RN pt will begin of EN support soon. RN informed of diet rec per MD approval Est. Needs based on IBW (70 kg): 1750 kcal to 2100 kcal (25-30 kcal/kgIBW), 70 gms to 98 gms pro (1.0-1.4 gms/kgIBW d/t severe hypoalbuminemia). Will continue to monitor pertinent labs and reassess nutrient need prn Labs: BUN 38 H, CREAT 2.82 H, GLU 167 H, CA 5.5 L, ALB 1.9 L. Skin: Lyndon scale 12, high risk, non blanchable redness to sacrum per per documentation clerk. GI: Pt has no BM reported per documentation clerk. PES: Altered nutrition related lab values r/t current/chronic medical condition aeb hyperglycemia, hyponatremia, elev. renal labslow ALP, hypocalcemia and severe hypoalbuminemia Increased nutrient needs r/t current medical condition aeb intubated, sedated, severe hypoalbuminemia, NPO Will continue to monitor NPO status, skin status, pertinent labs and weight trend. F/u in 2-3 days Rec.: 1.) If still NPO in next 48 hrs, consider alternate nutrition support if medically appropriate. 2.) EN support preferred with formula choice of Glucerna 1.2 Vinny @ 60 ml/hr goal rate as tolerated. 3.) If Albumin level continues trending down with improved renal labs, consider Prostat 1 pkt BID. 4.) Advance gradually to oral diet when medically appropriate.5.) Refer to RD for further nutrition educ. and weight monitoring upon discharge. 6.) Continue current plan of care.
[2018-09-25] MEDS: LINEZOLID 600MG/300ML 300 ML IV SCH ×2 (13:04→21:43)
--- NOTE | 2018-09-25 13:12 | NUR ---
RETURN CALL FROM DR PHELAN UPDATED ON CURRENT DRIPS, DR PHELAN WILL AWAIT NEXT LAB DRAW RESULTS BEFORE MAKING ANY CHANGES TO THE CURRENT PLAN OF CARE.
--- NOTE | 2018-09-25 14:06 | NUR ---
CONTACT PHARMACY REGARDING SODIUM BICARB ORDERED BY PHYSICIAN. AWAITING RECEIPT OF MEDICATION.
--- NOTE | 2018-09-25 15:10 | NUR ---
CONTACT PHARMACY ONCE AGAIN REGARDING SODIUM BICARB ORDERED BY DR PHELAN, AWAITING RECEIPT OF MEDICATION.
--- NOTE | 2018-09-25 15:30 | NUR ---
RECEIVED SOD BICARB FROM PHARMACY AND ADMINISTERED.
[2018-09-25 16:09] LABS: BUN/Creatinine Ratio 12.6; Potassium 4.6 mmol/L (3.5-5.1)
--- NOTE | 2018-09-25 16:16 | NUR ---
I called [facility] [phone] and spoke with senior operations analyst Monika who transferred me to Research Center Director Tiana-she said she will work on the transfer, she said they did receive the clinical information (including transfer order ) that was faxed this morning-I provided her with contact information for both Dr. Zhang as well as the nurse's station.
--- NOTE | 2018-09-25 16:16 | NUR ---
FAMILY AT BEDSIDE/PAGED DR MORRIS TO NOTIFY OF FAMILY AT BEDSIDE. AWAITING RETURN CALL.
--- NOTE | 2018-09-25 16:21 | NUR ---
CALLED PHARMACY FOR BACTRIM AWAITING RECEIPT OF MEDICATION.
[2018-09-25] MEDS: FLUCONAZOLE 200MG/100ML 100 ML IV SCH (16:28)
--- NOTE | 2018-09-25 16:52 | NUR ---
CRITICAL LABS/CONTACT DR PHELAN TO NOTIFY OF CRITICAL LABS. DID FINGER STICK FOR BLOOD SUGAR 149. AWAITING RESPONSE. FAMILY AT BEDSIDE.
--- NOTE | 2018-09-25 17:00 | NUR ---
I spoke with nurse Bre to let her know that VERÓNICA is working on the transfer.
--- NOTE | 2018-09-25 17:02 | NUR ---
RETURN CALL FROM DR SHAIKH DR MORRIS NOT AVAILABLE AT THIS TIME. SHE WILL DISCUSS PLAN OF CARE WITH PATIENT SPOUSE TOMORROW. FAMILY NOTIFIED.
[2018-09-25] MEDS: LATANOPROST 0.005 % OPTH(EYE) SOL 2.5ML LEFTEYE SCH (17:08)
[2018-09-25] MEDS: SULFAMETH TRIMETH IV SCH ×2 (17:35→22:51)
[2018-09-25] MEDS: D5W 5% IV SCH ×2 (17:35→22:51)
[2018-09-25 19:04] LABS: BUN/Creatinine Ratio 13.7; Potassium 5.1 mmol/L (3.5-5.1)
--- NOTE | 2018-09-25 19:30 | NUR ---
REPORT RECEIVED, ASSUMED CARE.
[2018-09-25 19:33] LABS: Calcium 5.1 mg/dL (8.5-10.1)
--- NOTE | 2018-09-25 19:45 | NUR ---
SPOKE WITH PT , PT SON COMING TONIGHT TO VISIT.
--- NOTE | 2018-09-25 19:48 | NUR ---
PAGED DR PHELAN NOTIFIED OF 1800 LAB RESULTS, AWAITING RESPONSE. ENDORSED CONTINUED CARE TO FABRICATOR SPECIAL ITEMS RN.
--- NOTE | 2018-09-25 19:56 | NUR ---
RETURN CALL FROM DR PHELAN ORDERS TO INCREASE SODIUM BICARB TO 125 CC/HR AND ADD CALCIUM 2 GM. ATTACHE RN. AWARE.
--- NOTE | 2018-09-25 20:00 | NUR ---
NORBERTO RIOS. NEW ORDERS OBTAINED.
[2018-09-25] MEDS ORDERED: CALCIUM GLUC 4.65meq/50ml D5AE 50 ML IV ONE (20:15)
[2018-09-25] MEDS ORDERED: NOREPINEPHRINE 8 MG/250ML KIT 250 ML IV SCH (20:30)
[2018-09-25] MEDS: CALCIUM GLUC 4.65meq/50ml D5AE 50 ML IV SCH ×2 (21:00→23:00)
--- NOTE | 2018-09-25 21:10 | NUR ---
VERÓNICA NUNES MGMT GAVE UPDATE ON PT, UNABLE TO TRANSFER UNTIL PT IS IN SINGLE DIGIT DOSAGE OF LEVOPHED GTT.
--- NOTE | 2018-09-25 22:00 | NUR ---
LEVOPHED GTT DRY RX HAS NOT DROPPED OFF GTT. PULLED SINGLE CONCENTRATION UNTIL DOUBLE CONCENTRATION ARRIVES.
[2018-09-25] MEDS ORDERED: NOREPINEPHRINE 8 MG/250ML KIT 250 ML IV ONE (22:04)
[2018-09-26] VITALS (106 sets, daily range): BP systolic 97–144; BP diastolic 39–71
[2018-09-26] MEDS: ALBUTEROL SULF 2.5 MG/0.5ML(0.5%) NEB SOLN NEB SCH ×4 (00:25→18:43)
[2018-09-26 00:32] LABS: INR 0.92 (0.9-1.15); Partial Thromboplastin Time 36.2 sec (23.78-33.04); Prothrombin Time 9.9 sec (9.27-12.13)
[2018-09-26] MEDS: IPRATROPIUM BROM 0.5 MG/2.5ML INH SOL NEB SCH ×4 (00:38→18:43)
[2018-09-26 00:39] LABS: BUN/Creatinine Ratio 13.1
[2018-09-26] MEDS: SODIUM BICARBONATE 50ML VIAL 150 ML in D5W 5% 1,000 ML IV SCH ×3 (00:40→14:40)
[2018-09-26 00:41] LABS: Calcium 5.3 mg/dL (8.5-10.1)
[2018-09-26] MEDS: MIDAZOLAM DRIP 50 mg/50mL 50 ML IV SCH ×3 (01:17→22:29)
[2018-09-26] MEDS: ALBUMIN 25% 100 ML IV SCH (03:53)
[2018-09-26] MEDS: ACYCLOVIR SOD 50MG/ML 500 MG in SODIUM CHL 0.9% 250 ML IV SCH (03:53)
[2018-09-26] MEDS: NOREPINEPHRINE BITARTRATE 16 MG in D5W 5% 250 ML IV SCH ×2 (04:00→12:19)
[2018-09-26 04:30] LABS: BUN/Creatinine Ratio 13.3
[2018-09-26 04:48] LABS: Calcium 5.2 mg/dL (8.5-10.1)
[2018-09-26 05:06] LABS: Mean Corpuscular Hemoglobin 33.9 pg (28.0-32.0); Red Blood Cells 2.05 10^6/uL (4.5-5.90); White Blood Cell 2.4 10^3/uL (4.4-10.8)
[2018-09-26 05:08] LABS: Hematocrit 19.9 % (41.0-53.0); Mean Corpuscular Volume 96.9 fL (80.0-100.0); Platelet Count (auto) 151 10^3/uL (140-450); Red Cell Distribution Width 14.5 % (11.8-14.3)
[2018-09-26 05:14] LABS: Hemoglobin 7.2 g/dL (13.5-17.5)
[2018-09-26 05:16] LABS: Basophils % (manual) 0 (0.0-2.0); Blast Cells 0; Eosinophils % (manual) 0 (0-7); Metamyelocytes % 0; Myelocytes % 0; Promyelocytes % 0; Reactive Lymphocytes 0
[2018-09-26] MEDS: InsuLIN REG 1unit/0.01ml Soln (100units/ml) SC SCH ×5 (05:51→23:48)
[2018-09-26] MEDS: SODIUM CHL 0.9% IV SCH ×5 (05:51→18:33)
[2018-09-26] MEDS: ACCU-CHEK COMFORT CURVE STRIP VI SCH ×5 (05:51→23:48)
[2018-09-26] MEDS: methylPREDNISolone SOD SUCC 40 MG/ML VL IV SCH ×3 (05:51→18:33)
[2018-09-26] MEDS: PIPERACILLIN TAZOB IV SCH ×5 (05:51→18:33)
--- NOTE | 2018-09-26 06:17 | NUR ---
CALLED BOTH [facility] AND [facility] REGARDING CRITICAL LAB VALUES, AWAIT CALLBACK. WILL GIVE IN REPORT AND CONT TO MONITOR.
--- NOTE | 2018-09-26 06:20 | NUR ---
NOTIFIED HOSPITALIST PT HGB DROPPED FROM 8.4 TO 7.2, PT DOES HAVE DARK OLD BLOOD DRAINAGE FROM OGT. OBTAINED NEW ORDERS, WILL GIVE IN REPORT AND CONT TO MONITOR.
[2018-09-26 06:52] LABS: Band Neutrophils % (manual) 25; Lymphocytes % (manual) 9 (10.0-50.0); Monocytes % (manual) 8 (0-12)
[2018-09-26] MEDS ORDERED: SODIUM BICARBONATE 8.4 % INJ 50ML VIAL IV ONE (07:00)
[2018-09-26] MEDS ORDERED: CALCIUM GLUC 4.65meq/50ml D5AE 50 ML IV ONE ×2 (07:00→14:00)
[2018-09-26] MEDS ORDERED: SODIUM CHL 3% 500 ML IV ONE (07:00)
--- NOTE | 2018-09-26 07:45 | NUR ---
OPENING SHIFT NOTE Report received from Nathna CORBETT, care assumed. Patient is intubated on ventilator. Pupils 3 cm, reactive to light, cough/gag intact. Afebrile Sedation: Versed 3 mg. Pulses palpable, weak radial and pedal. Sinus rhythm 98 on bedside monitor. Blood pressure stable on Levophed gtt. Edema on upper/lower extremities and abdomen/boby area. SCD's on bilateral lower extremities, heels elevated on pillows. Lungs clear/diminished anteriorly. Tolerating vent at this time, oxygenation 100%. Bowel sounds hypoactive, Hernandez catheter patent, hung below bladder. See skin assessment. Central line TLC noted right IJ. Bed locked in lowest position with call light within reach. Alarms in place. Continue to monitor.
[2018-09-26] MEDS: SULFAMETH TRIMETH IV SCH (07:55)
[2018-09-26] MEDS: D5W 5% IV SCH (07:55)
--- NOTE | 2018-09-26 09:40 | NUR ---
NEPHROLOGY ROUNDS at bedside assessing patient and speaking with regarding plan of care. He is aware of AM labs as well as orders for replacement given this morning. No further orders received at this time. Continue to monitor.
[2018-09-26] MEDS: ENOXAPARIN SOD 30 MG/0.3 ML SYRINGE SC SCH (10:01)
[2018-09-26] MEDS: AZITHROMYCIN 500MG 500 MG in SODIUM CHL 0.9% 250 ML IV SCH (10:01)
[2018-09-26] MEDS: LINEZOLID 600MG/300ML 300 ML IV SCH ×2 (10:02→22:16)
[2018-09-26] MEDS: TACROLIMUS 0.5 MG PO SCH ×2 (10:02→22:16)
[2018-09-26] MEDS: KETOTIFEN 0.025% OP SCH ×2 (10:02→22:16)
--- NOTE | 2018-09-26 10:12 | NUR ---
TOWNER Alvina porter sample case at [facility] called for update. They will not transfer patient at this time.
--- NOTE | 2018-09-26 11:03 | NUR ---
PULMONOLOGY ROUNDS at bedside assessing patient and speaking with . He thinks patient should be placed on dialysis for acidosis. He believes its metabolic not respiratory. He is aware of medications given this morning. I gave him 's cell number to discuss plan. No orders received at this time.
--- NOTE | 2018-09-26 11:10 | NUR ---
PAGED paged regarding pharmacy abx recommendation. Awaiting call back.
[2018-09-26] MEDS ORDERED: BUMETANIDE (0.25MG/ML) 4 ML VIAL IV ONE (11:15)
--- NOTE | 2018-09-26 11:19 | NUR ---
LAB T & S sent to lab.
--- NOTE | 2018-09-26 11:26 | NUR ---
RETURNED PAGE She does not want to hold abx at this time, recommends make that decisions. She also wants to wait for Hematology rounds for hgb order.
--- NOTE | 2018-09-26 11:32 | NUR ---
NEPHROLOGY agree's with holding abx at this time. He is also aware of Pulmonology requesting possible dialysis. He stated he will come by and speak with regarding plan.
[2018-09-26 12:10] LABS: Potassium 4.6 mmol/L (3.5-5.1)
[2018-09-26 12:11] LABS: BUN/Creatinine Ratio 13.5
[2018-09-26 12:17] LABS: Calcium 5.3 mg/dL (8.5-10.1)
--- NOTE | 2018-09-26 12:41 | NUR ---
CRITICAL LAB RESULTS aware of lab results sodium and calcium.
[2018-09-26] MEDS ORDERED: SODIUM CHL 0.9% 1000 ML BAG XX ONE (14:30)
--- NOTE | 2018-09-26 14:30 | NUR ---
GI CONSULT at bedside. He is aware of decrease in hgb level, awaiting hematology consult for blood orders. He is aware of blood in OGT tube being dark, clots. Will notify him if OGT is bright red, active bleeding. Oral cavity has minimal red bloody secretions. Deep suctioning in oral cavity produced dark brown sputum, gag intact.
--- NOTE | 2018-09-26 15:00 | NUR ---
DIALYSIS CATHETER PLACEMENT Temporary dialysis catheter placement at bedside by . Catheter placed in left IJ. Placement confirmed with chest x-ray. confirmed placement, and ok to use.
[2018-09-26 15:56] LABS: BUN/Creatinine Ratio 13.5; Potassium 4.5 mmol/L (3.5-5.1)
[2018-09-26 16:08] LABS: Calcium 5.5 mg/dL (8.5-10.1)
[2018-09-26] MEDS: FLUCONAZOLE 200MG/100ML 100 ML IV SCH (16:10)
--- NOTE | 2018-09-26 16:29 | NUR ---
CRITICAL LAB RESULTS aware of lab results of calcium.
--- NOTE | 2018-09-26 16:30 | NUR ---
DIALYSIS NURSE AT BEDSIDE.
--- NOTE | 2018-09-26 16:36 | NUR ---
NEPHRO ORDERED FOR 3% NS TO CONTINUE UNTIL MD DECIDES TO DISCONTINUE ORDER.
--- NOTE | 2018-09-26 16:36 | NUR ---
NEPHROLOGY UPDATE updated on new calcium results. He does not want to order calcium replacement at this time. Orders for albumin obtain for blood pressure, if decreased during dialysis, albumin may be given prn as needed.
--- NOTE | 2018-09-26 16:58 | NUR ---
MD PAGED Page Income Tax Manager/oncologist regarding consult and orders. Awaiting call back.
--- NOTE | 2018-09-26 17:56 | NUR ---
HOSPITALIST SILVESTRE Frost NP paged regarding orders for blood transfusion. He wants 1 unit prbc to be given with dialysis and labs to be checked tomorrow morning.
[2018-09-26] MEDS: LATANOPROST 0.005 % OPTH(EYE) SOL 2.5ML LEFTEYE SCH (18:33)
[2018-09-26] MEDS ORDERED: SODIUM CHL 3% 500 ML IV SCH (18:45)
--- NOTE | 2018-09-26 19:21 | NUR ---
REPORT Report given to Shelia fenton, care endorsed.
--- NOTE | 2018-09-26 19:32 | NUR ---
1 UNIT PRBC STARTED PER ORDER.
--- NOTE | 2018-09-26 20:30 | NUR ---
FAMILY CALL PT CALLED UNIT FOR UPDATE ON PT CONDITION. AFTER PASSWORD FOR PHONE GIVEN UPDATE PROVIDED.
[2018-09-26] MEDS ORDERED: EPOETIN ALFA 10,000 UNIT/1 ML VIAL SC ONE (21:00)
--- NOTE | 2018-09-26 21:00 | NUR ---
PAGE DR ANTHONY COVERING HOSPITALIST OFF SITE. INVESTIGATOR VICE CONTACTED. REPORTED PT NOW IN AFIB CONFIRMED VIA EKG. INVESTIGATOR VICE WILL PAGE DR ANTHONY.
--- NOTE | 2018-09-26 21:00 | NUR ---
CHARTING THIS APPOINTMENT MANAGER ASSUMED CARE AT 1939. LOGIN STILL UNDER DAY SHIFT RN. ALL INTERVENTIONS AFTER 1930 PERFORMED BY THIS APPOINTMENT MANAGER.
[2018-09-26] MEDS: PANTOPRAZOLE 40 MG/10 ML VIAL IV SCH (22:16)
[2018-09-26] MEDS ORDERED: DIGOXIN (250MCG/ML) 2 ML AMPULE IV ONE (22:45)
--- NOTE | 2018-09-26 23:00 | NUR ---
MD CALL/AFIB DR ANTHONY UPDATED REGARDING AFIB RATE 1 TEENS TO 120'S. ORDERS RECEIVED.
[2018-09-27] VITALS (107 sets, daily range): BP systolic 104–141; BP diastolic 49–70
--- NOTE | 2018-09-27 00:30 | NUR ---
BLEEDING/DRESSING CHANGE PT BLEEDING ORALLY, PT ALSO BLEEDING FROM DIALYSIS CATH. PT BLEEDS FROM ACCUCHECK AND IV STICK SITES. DRESSING CHANGED TO H.D. CATH USING STERILE TECHNIQUE. 1 LB BAG PLACED ON TOP OF TOWEL TO PROVIDE LIGHT PRESSURE IN ATTEMPT TO STOP BLEEDING FROM HD CATH. BLEEDING FROM SUTURE SITE NOT FROM INSERTION SITE. PT CONTINUES TO HAVE RED BLOOD AND CLOTS WITH GENTLE ORAL CARE. WILL CONTINUE TO CLOSELY MONITOR.
[2018-09-27] MEDS: ALBUTEROL SULF 2.5 MG/0.5ML(0.5%) NEB SOLN NEB SCH ×5 (00:38→23:33)
[2018-09-27] MEDS: IPRATROPIUM BROM 0.5 MG/2.5ML INH SOL NEB SCH ×5 (00:38→23:33)
--- NOTE | 2018-09-27 01:00 | NUR ---
Patient bathe/linen change Patient given complete bath. Skin integrity assessed for any changes. Linens changed. WATER PROOF PADS SATURATED WITH SEROUS DRAINAGE. PT WEEPING FROM SCROTUM, AND PAOLA UPPER EXT'S. Patient repositioned for comfort. PAOLA HEELS ELEVATED. PILLOWS USED TO OFFLOAD BONY PROMINENCES. WILL CONTINUE TO MONITOR.
[2018-09-27 02:46] LABS: BUN/Creatinine Ratio 13.8; Potassium 3.7 mmol/L (3.5-5.1)
[2018-09-27 03:28] LABS: Hemoglobin 7.4 g/dL (13.5-17.5); Platelet Count (auto) 86 10^3/uL (140-450)
[2018-09-27 03:30] LABS: Hematocrit 20.4 % (41.0-53.0); Mean Corpuscular Hemoglobin 33.7 pg (28.0-32.0); Mean Corpuscular Hgb Conc. 36.1 g/dL (32.0-36.0); Mean Corpuscular Volume 93.2 fL (80.0-100.0); Red Blood Cells 2.19 10^6/uL (4.5-5.90); Red Cell Distribution Width 15.1 % (11.8-14.3)
[2018-09-27 03:35] LABS: White Blood Cell 0.9 10^3/uL (4.4-10.8)
[2018-09-27 03:36] LABS: Basophils % (manual) 0 (0.0-2.0); Blast Cells 0; Eosinophils % (manual) 0 (0-7); Metamyelocytes % 0; Myelocytes % 0; Promyelocytes % 0; Reactive Lymphocytes 0
[2018-09-27 03:41] LABS: INR 0.99 (0.9-1.15); Partial Thromboplastin Time 33.7 sec (23.78-33.04); Prothrombin Time 10.6 sec (9.27-12.13)
[2018-09-27 03:45] LABS: % Iron Saturation 53.1 % (20-55)
[2018-09-27 03:46] LABS: Albumin 2.2 g/dL (3.4-5.0); BUN/Creatinine Ratio 12.9; Magnesium 1.8 mg/dL (1.6-2.6); Potassium 3.5 mmol/L (3.5-5.1)
[2018-09-27 03:50] LABS: Bilirubin, Total 0.3 mg/dL (0.2-1.0); Total Protein 4.3 g/dL (6.4-8.2)
[2018-09-27 03:52] LABS: Calcium 5.4 mg/dL (8.5-10.1)
[2018-09-27] MEDS ORDERED: CALCIUM CHL 100MG/ML 1,000 MG in D5W 5% 100 ML IV ONE (04:45)
[2018-09-27] MEDS: SODIUM CHLORIDE 0.9% 1,000 ML IV SCH ×2 (04:55→14:45)
--- NOTE | 2018-09-27 04:59 | NUR ---
LAB VALUES/MD MD CALVIN ON UNIT. UPDATED REGARDING THIS AM'S ABG RESULTS. UPDATED REGARDING PT ON SODIUM BICARB GTT. UPDATED REGARDING CA+ AND NA+ LEVELS. ORDERS RECEIVED.
[2018-09-27] MEDS ORDERED: CALCIUM CHLOR(10%) 100MG/ML 10ML SYRINGE IV ONE (05:13)
[2018-09-27] MEDS: methylPREDNISolone SOD SUCC 40 MG/ML VL IV SCH ×5 (05:30→23:58)
[2018-09-27] MEDS: SODIUM CHL 0.9% IV SCH ×3 (05:31)
[2018-09-27] MEDS: PIPERACILLIN TAZOB IV SCH ×3 (05:31)
[2018-09-27] MEDS: ACCU-CHEK COMFORT CURVE STRIP VI SCH ×3 (06:00→17:45)
[2018-09-27] MEDS: InsuLIN REG 1unit/0.01ml Soln (100units/ml) SC SCH ×3 (06:03→17:45)
[2018-09-27] MEDS ORDERED: SODIUM CHL 0.9% 1000 ML BAG XX ONE (07:00)
[2018-09-27] MEDS: MIDAZOLAM DRIP 50 mg/50mL 50 ML IV SCH ×2 (07:57→22:03)
[2018-09-27] MEDS ORDERED: FILGRASTIM(TBO) 480 MCG/0.8 ML SYRG SC ONE (09:00)
[2018-09-27 09:18] LABS: Band Neutrophils % (manual) 9; Lymphocytes % (manual) 7 (10.0-50.0); Monocytes % (manual) 5 (0-12)
[2018-09-27] MEDS: AZITHROMYCIN 500MG 500 MG in SODIUM CHL 0.9% 250 ML IV SCH (09:30)
[2018-09-27] MEDS: PANTOPRAZOLE 40 MG/10 ML VIAL IV SCH ×2 (09:30→22:03)
[2018-09-27] MEDS: KETOTIFEN 0.025% OP SCH ×2 (09:31→22:03)
[2018-09-27] MEDS: TACROLIMUS 0.5 MG PO SCH ×2 (09:32→22:05)
[2018-09-27] MEDS: LINEZOLID 600MG/300ML 300 ML IV SCH (09:32)
[2018-09-27] MEDS: ENOXAPARIN SOD 30 MG/0.3 ML SYRINGE SC SCH (09:32)
--- NOTE | 2018-09-27 09:50 | NUR ---
DR. MORRIS AT BEDSIDE HAD LENGTHY CONVERSATION WITH ABOUT PATIENT STATUS. ALL QUESTIONS AND CONCERNS ADDRESSED AT THIS TIME
--- NOTE | 2018-09-27 10:02 | NUR ---
[facility] UPDATED ON PATIENT STATUS. ALL QUESTIONS AND CONCERNS ADDRESSED AT THIS TIME. PER REQUEST SHE WOULD LIKE TO KEEP PATIENT HERE AND TRANSFER TO [facility] TOMORROW ONCE A BED OPENS UP
[2018-09-27] MEDS ORDERED: MAGNESIUM SULFATE 1GM/100ML 100 ML IV ONE (11:00)
--- NOTE | 2018-09-27 11:16 | NUR ---
Nutrition Follow-up Notes Wt.: 87.0 kg based on bed scale today Pt's in isolation room, with RN, talking to family member during rounds earlier. Pt's currently intubated, sedated, had dialysis yesterday, remains NPO, no order for alternate nutrition support yet at this time, per nursing. Noted pt's for active GI and Merlin/Oncology consults. Est. Needs based on IBW (70 kg): 1750 kcal to 2100 kcal (25-30 kcal/kgIBW), 70 gms to 98 gms pro (1.0-1.4 gms/kgIBW d/t severe hypoalbuminemia). Will continue to monitor pertinent labs and reassess nutrient need prn Labs: Gluc 211 H, Na 133 L, Cl 93 L, BUN 29 H, Cr 2.25 H, Ca 5.4 L, TIBC 145 L, Ferritin 530.9 H, AST 44 H, ALP 36 L, Tpro 4.3 L, Alb 2.2 L. Skin: Lyndon scale 10, high risk, pt's left wrist skin tear, non blanchable redness to sacrum per per wireless consultant. Pls refer to communications maintainer's notes 09/24/18 for further details re: tx plans. GI: Pt has no BM reported per wireless consultant. PES: Altered nutrition related lab values r/t current/chronic medical condition aeb hyperglycemia, hyponatremia, elev. renal labs, low ALP, hypocalcemia and severe hypoalbuminemia Increased nutrient needs r/t current medical condition aeb intubated, sedated, severe hypoalbuminemia, NPO Will continue to monitor NPO status, skin status, pertinent labs and weight trend. F/u in 2 to 3 days Rec.: 1.) If still NPO, consider alternate nutrition support if medically appropriate. 2.) EN support preferred with formula choice of Nepro @ 45 ml/hr goal rate as tolerated-if pt continues on dialysis, per MD's approval. 3.) If Albumin level continues trending down, consider Prostat 1 pkt BID. 4.) Consider daily Nephrovite and Asc acid 500 mgs BID. 5.) Advance gradually to oral diet when medically appropriate. 6.) Refer to RD for further nutrition educ. and weight monitoring upon discharge. 7.) Continue current plan of care.
[2018-09-27] MEDS ORDERED: FUROSEMIDE 20 MG/2 ML VIAL IV ONE (11:45)
--- NOTE | 2018-09-27 11:45 | NUR ---
DIALYSIS PER DR. PHELAN NO DIALYSIS TODAY, ORDERS RECEIVED FOR LASIX AND POTASSIUM
[2018-09-27] MEDS: POTASSIUM CHL 20MEQ/100ML 100 ML IV SCH ×2 (12:00→14:02)
[2018-09-27] MEDS ORDERED: LEVOFLOXACIN 750MG 150 ML IV ONE (12:30)
[2018-09-27 13:06] LABS: Hemoglobin 7.6 g/dL (13.5-17.5)
--- NOTE | 2018-09-27 13:30 | NUR ---
RT Transport Note: Patient transported to {CT} with RN {FANTASMA [place]}. Patient transported to and from procedure on ventilator with previous ordered settings. Patient on cardiac technician with alarms set and audible, ambu-bag/mask connected to 02 tank. Patient returned to room with no adverse reaction noted. Transport completed without incident.
--- NOTE | 2018-09-27 13:50 | NUR ---
DR. SHAIKH RIVERS AWAITING CALLBACK
[2018-09-27] MEDS: MEROPENEM 1GM IVPB 100 ML IV SCH ×2 (14:21→22:02)
[2018-09-27] MEDS: FLUCONAZOLE 200MG/100ML 100 ML IV SCH (15:18)
--- NOTE | 2018-09-27 15:21 | NUR ---
PARTIAL LINEN CHANGE PERFORMED AT THIS TIME
[2018-09-27 17:08] LABS: Hepatitis A Ab IgM Negative; Hepatitis B Core IgM Negative; Hepatitis B Surface Antigen Negative (Negative); Hepatitis C Antibody Negative (Negative)
--- NOTE | 2018-09-27 17:17 | NUR ---
DR. JACKSON AT BEDSIDE
[2018-09-27] MEDS: LATANOPROST 0.005 % OPTH(EYE) SOL 2.5ML LEFTEYE SCH (17:45)
--- NOTE | 2018-09-27 19:17 | NUR ---
REPORT GIVEN TO PARVIN CORBETT TO ASSUME CARE
[2018-09-27] MEDS: NOREPINEPHRINE BITARTRATE 16 MG in D5W 5% 250 ML IV SCH (20:29)
[2018-09-27] MEDS ORDERED: EPOETIN ALFA 10,000 UNIT/1 ML VIAL SC ONE (21:00)
[2018-09-28] VITALS (105 sets, daily range): BP systolic 119–155; BP diastolic 55–86
[2018-09-28] MEDS: ACCU-CHEK COMFORT CURVE STRIP VI SCH ×4 (00:01→18:00)
[2018-09-28] MEDS: SODIUM CHLORIDE 0.9% 1,000 ML IV SCH (01:00)
[2018-09-28 03:59] LABS: Red Cell Distribution Width 15.1 % (11.8-14.3)
--- NOTE | 2018-09-28 04:00 | NUR ---
Patient bathe/linen change Patient given complete bath. Skin integrity assessed for any changes. Linens changed. Patient repositioned for comfort. PT WITH SEVERE SCROTAL AND PENILE EDEMA. ANASARCA AND WEEPING THROUGHOUT BODY. PERIANAL AREA NOW SWOLLEN AND WEEPING. SKIN STARTING TO SPLIT IN PERINEAL AREA. AREA GENTLY CLEANSED. PAT DRY. ZGAURD OINTMENT. NEW WATER PROOF PADS UNDER WEEPING AREAS.
[2018-09-28 04:02] LABS: Hematocrit 22.4 % (41.0-53.0); Mean Corpuscular Hemoglobin 33.1 pg (28.0-32.0); Mean Corpuscular Hgb Conc. 35.8 g/dL (32.0-36.0); Mean Corpuscular Volume 92.4 fL (80.0-100.0); Platelet Count (auto) 54 10^3/uL (140-450); Red Blood Cells 2.43 10^6/uL (4.5-5.90)
[2018-09-28 04:17] LABS: Potassium 3.9 mmol/L (3.5-5.1)
[2018-09-28 04:19] LABS: White Blood Cell 0.8 10^3/uL (4.4-10.8)
[2018-09-28 04:20] LABS: Basophils % (manual) 0 (0.0-2.0); Blast Cells 0; Eosinophils % (manual) 0 (0-7); Myelocytes % 0; Promyelocytes % 0; Reactive Lymphocytes 0
[2018-09-28 04:24] LABS: Bilirubin, Total 0.3 mg/dL (0.2-1.0); Magnesium 2.2 mg/dL (1.6-2.6); Total Protein 4.1 g/dL (6.4-8.2)
[2018-09-28 04:28] LABS: Calcium 5.7 mg/dL (8.5-10.1)
[2018-09-28] MEDS: MEROPENEM 1GM IVPB 100 ML IV SCH ×3 (05:04→22:29)
[2018-09-28] MEDS: methylPREDNISolone SOD SUCC 40 MG/ML VL IV SCH ×3 (05:14→18:00)
[2018-09-28] MEDS: InsuLIN REG 1unit/0.01ml Soln (100units/ml) SC SCH ×4 (05:14→18:00)
[2018-09-28] MEDS: MIDAZOLAM DRIP 50 mg/50mL 50 ML IV SCH ×2 (05:18→16:11)
--- NOTE | 2018-09-28 06:00 | NUR ---
REPORT GIVEN TO ICU INDUSTRIAL AERIAL INSTALLERCHELLE DE OLIVEIRA
[2018-09-28 06:41] LABS: Band Neutrophils % (manual) 6; Lymphocytes % (manual) 12 (10.0-50.0)
[2018-09-28 06:42] LABS: Metamyelocytes % 2; Monocytes % (manual) 28 (0-12)
[2018-09-28] MEDS ORDERED: SODIUM CHL 0.9% 1000 ML BAG XX ONE (07:00)
[2018-09-28] MEDS: IPRATROPIUM BROM 0.5 MG/2.5ML INH SOL NEB SCH ×3 (07:03→18:50)
[2018-09-28] MEDS: ALBUTEROL SULF 2.5 MG/0.5ML(0.5%) NEB SOLN NEB SCH ×3 (07:03→18:50)
--- NOTE | 2018-09-28 07:30 | NUR ---
REPORT RECEIVED FROM ORACLE BPM DEVELOPER NURSE. PATIENT RESTING IN BED AT THIS TIME INTUBATED AND SEDATED. RESPIRATIONS EVEN AND UNLABORED. NO SIGNS OF ACUTE DISTRESS NOTED. BED IN LOW POSITION. WILL CONTINUE TO MONITOR.
--- NOTE | 2018-09-28 08:30 | NUR ---
DIALYSIS NURSE AT BEDSIDE AND STARTED DIALYSIS. PATIENT TOLERATING WELL WILL CONTINUE TO MONITOR.
[2018-09-28 09:03] LABS: % Iron Saturation 77.8 % (20-55)
--- NOTE | 2018-09-28 09:22 | NUR ---
DR PHELAN AT BEDSIDE TO ASSESS PATIENT AND DISCUSS PLAN OF CARE WITH . ALL QUESTIONS AND CONCERNS ANSWERED. PER MD STOP FLUIDS AT THIS TIME.
[2018-09-28] MEDS: ENOXAPARIN SOD 30 MG/0.3 ML SYRINGE SC SCH (10:00)
--- NOTE | 2018-09-28 11:15 | NUR ---
PAGED DR MORRIS FOR TRANSFER ORDERS TO [facility] IF PATIENT STABLE. AWAITING CALL BACK.
--- NOTE | 2018-09-28 11:30 | NUR ---
DIALYSIS COMPLETED REMOVED 2.3 LITERS.
--- NOTE | 2018-09-28 11:50 | NUR ---
DR MORRIS AT BEDSIDE TO ASSESS PATIENT AND DISCUSS PLAN OF CARE. PER MD WILL PLACE ORDER FOR TRANSFER IF OK FOR WITH NEPHROLOGY AND PULMONOLOGY.
[2018-09-28] MEDS: LEVOFLOXACIN 750MG 150 ML IV SCH (12:56)
[2018-09-28] MEDS: PANTOPRAZOLE 40 MG/10 ML VIAL IV SCH ×2 (12:57→22:31)
[2018-09-28] MEDS: KETOTIFEN 0.025% OP SCH ×2 (12:58→22:00)
[2018-09-28] MEDS ORDERED: TACROLIMUS 0.5 MG PO SCH (13:06)
[2018-09-28] MEDS: TACROLIMUS 0.5 MG PO SCH ×2 (13:19→22:00)
--- NOTE | 2018-09-28 13:40 | NUR ---
I spoke with patient's primary nurse in ICU regarding possible transfer to [facility]-she will give me a call back. I called Mckay Sigala [phone] and left message asking her to give me a call.
--- NOTE | 2018-09-28 14:00 | NUR ---
CHARGE NURSE ALVINO SPOKE TO DR LYNN. PER PATIENT OK FOR TRANSFER TO [facility]. ADMINISTER 40MG LASIX IVP X1 DOSE THEN START LASIX DRIP 10MG/HR.
--- NOTE | 2018-09-28 14:35 | NUR ---
DR RIDLEY AT BEDSIDE TO ASSESS PATIENT AND DISCUSS PLAN OF CARE. PER MD PATIENT OK TO TRANSFER TO [facility].
--- NOTE | 2018-09-28 14:42 | NUR ---
PAGED DAVE FROM CASE MANAGEMENT AWAITING CALL BACK. [phone] SPOKE TO DAVE TO INFORM HER THAT PATIENT WAS CLEARED FOR TRANSFER, BUT DOES NOT WANT THE PATIENT TRANSFERRED AT THIS TIME. PER DAVE PATIENT SHOULD BE OK TO STAY PER HIS INSURANCE. INFORMED DAVE THAT PATIENTS IS AT BEDSIDE TO DISCUSS PLAN OF CARE WITH, SHE OR PARVIN WILL BE DOWN TO TALK WITH .
[2018-09-28] MEDS ORDERED: FUROSEMIDE 40 MG/4 ML VIAL ONE (16:01)
[2018-09-28] MEDS ORDERED: MIDAZOLAM DRIP 50 mg/50mL 50 ML IV ONE (16:02)
[2018-09-28] MEDS ORDERED: FUROSEMIDE 40 MG/4 ML VIAL IV ONE (16:15)
[2018-09-28] MEDS: FUROSEMIDE INJECTION 250 MG in D5W 5% 225 ML IV SCH (16:44)
[2018-09-28] MEDS: FLUCONAZOLE 200MG/100ML 100 ML IV SCH (17:10)
[2018-09-28] MEDS: LATANOPROST 0.005 % OPTH(EYE) SOL 2.5ML LEFTEYE SCH (18:00)
--- NOTE | 2018-09-28 18:50 | NUR ---
Respiratory note: RECEIVED PT ON VENT V21. PT IS ETT TO VENT. VENT CONNECTED TO RED OUTLET AND O2 SOURCE. ALARMS ARE SET AND AUDIBLE. AMBU BAG AND MASK AT BEDSIDE. BS ARE COURSE T/O SXD SCANT BLOODY/MARAVILLA. MED NEB TX GIVEN INLINE WITHOUT ADVERSE REACTION. RT NAME AND PAGER ASSIGNMENT WRITTEN ON PTS ROOM BOARD. WILL CONTINUE TO MONITOR.
--- NOTE | 2018-09-28 20:15 | NUR ---
ASSESSMENT: VENTED ON AC/16, TV 500, FIO2 30%, PEEP +5, SATS 96%, ETT 8 FR AT 26 CM LIP LINE. LARGE AMT. OF DRY, BLOOD AREAS AROUND LIPS AND MOUTH NOTED. NO ETT SECRETIONS AT THIS TIME. CARDIAC - SINUS 90'S, WITH FREQUENT PAC'S. 3+ GENERALIZED WITH WEEPING THROUGHOUT. BILATERAL FOREARMS WITH BLACK LESSIONS AND REDNESS. LUNGS CLEAR UPPER LOBES AND DIMINISHED AT BASES. PUPILS 2+ BRISK, NO RESPOND TO NOXIOUS STIMULI. ABDOMEN DISTENDED BUT SOFT, NGT TO LIS WITH LIGHT GREEN DRAINAGE. PETERS WITH LARGE AMT. OF CLEAR, YELLOW URINE VIA PETERS. FLEXI SEAL WITH LIQUID GREEN STOOL, MINIMAL AMT. IRRIGATED WITH 100 CC OF H20. NO FAMILY AT BESIDE. WILL CONTINUE TO MONITOR.
[2018-09-28] MEDS: NOREPINEPHRINE BITARTRATE 16 MG in D5W 5% 250 ML IV SCH (20:29)
--- NOTE | 2018-09-28 20:29 | NUR ---
Respiratory note: AT BEDSIDE FOR ROUTINE VENT CHECK. NO CHANGES MADE.
[2018-09-28] MEDS ORDERED: EPOETIN ALFA 10,000 UNIT/1 ML VIAL SC ONE (21:00)
--- NOTE | 2018-09-28 22:25 | NUR ---
Respiratory note: AT BEDSIDE FOR ROUTINE VENT CHECK. NO CHANGES MADE. CHELLE RHODES AT BEDSIDE
--- NOTE | 2018-09-28 23:16 | NUR ---
FREQUENT PAC'S NOTED AT THIS TIME, HR 90'S, SBP 148/79.
[2018-09-29] VITALS (78 sets, daily range): BP systolic 111–167; BP diastolic 60–96
[2018-09-29] MEDS: ALBUTEROL SULF 2.5 MG/0.5ML(0.5%) NEB SOLN NEB SCH ×4 (00:24→18:21)
[2018-09-29] MEDS: IPRATROPIUM BROM 0.5 MG/2.5ML INH SOL NEB SCH ×4 (00:24→18:21)
[2018-09-29] MEDS: ACCU-CHEK COMFORT CURVE STRIP VI SCH ×5 (00:24→23:08)
--- NOTE | 2018-09-29 00:24 | NUR ---
Respiratory note: AT BEDSIDE FOR ROUTINE VENT CHECK. BS ARE COURSE SXD MODERATE THICK BLOODY CREAMY MARAVILLA. MED NEB TX GIVEN INLINE WITHOUT ADVERSE REACTION NOTED. WILL CONTINUE TO MONITOR.
[2018-09-29] MEDS: methylPREDNISolone SOD SUCC 40 MG/ML VL IV SCH ×5 (00:31→23:10)
--- NOTE | 2018-09-29 02:14 | NUR ---
Respiratory note: AT BEDSIDE FOR ROUTINE VENT CHECK. NO CHANGES MADE AT THIS TIME. WILL CONTINUE TO MONITOR.
[2018-09-29] MEDS ORDERED: MIDAZOLAM DRIP 50 mg/50mL 50 ML IV ONE (03:26)
[2018-09-29] MEDS: MIDAZOLAM DRIP 50 mg/50mL 50 ML IV SCH ×2 (03:30→21:10)
[2018-09-29 03:54] LABS: Mean Corpuscular Hemoglobin 33.5 pg (28.0-32.0); Mean Corpuscular Hgb Conc. 35.7 g/dL (32.0-36.0); Mean Corpuscular Volume 93.9 fL (80.0-100.0); Platelet Count (auto) 54 10^3/uL (140-450); Red Blood Cells 2.69 10^6/uL (4.5-5.90)
[2018-09-29 04:08] LABS: Potassium 3.8 mmol/L (3.5-5.1)
--- NOTE | 2018-09-29 04:16 | NUR ---
Respiratory note: END OF SHIFT VENT CHECK WILL HAVE DAY SHIT CONTINUE PLAN OF CARE.
[2018-09-29 04:18] LABS: BUN/Creatinine Ratio 18.8; Calcium 7.2 mg/dL (8.5-10.1)
[2018-09-29 04:20] LABS: White Blood Cell 1.1 10^3/uL (4.4-10.8)
[2018-09-29 04:21] LABS: Hematocrit 25.7 % (41.0-53.0)
[2018-09-29 04:23] LABS: Basophils % (manual) 0 (0.0-2.0); Blast Cells 0; Eosinophils % (manual) 0 (0-7); Promyelocytes % 0; Reactive Lymphocytes 0
[2018-09-29] MEDS: MEROPENEM 1GM IVPB 100 ML IV SCH ×3 (05:34→21:11)
[2018-09-29] MEDS: InsuLIN REG 1unit/0.01ml Soln (100units/ml) SC SCH ×5 (05:48→23:08)
--- NOTE | 2018-09-29 06:12 | NUR ---
CARDIAC RHYTHM - FREQUENT PAC,'S, BP WNL. U.O - > 2000 CC THIS SHIFT, CLEAR, YELLOW. AFREBRILE ANASARCA - UNCHANGED, ARMS AND SCROTUM WEEPING LARGE AMT.OF SEROUS FLUIDS. BILATERAL ARM WITH PADS TO ASSIST IN KEEPING SKIN DRY.
--- NOTE | 2018-09-29 06:27 | NUR ---
RT NOTE: BREATH TX. STOPPED DUE TO PT. HR INCREASED TO 123 FROM 92. CHELLE BURT.
[2018-09-29 06:45] LABS: Band Neutrophils % (manual) 34; Lymphocytes % (manual) 14 (10.0-50.0); Metamyelocytes % 7; Monocytes % (manual) 6 (0-12); Myelocytes % 12
--- NOTE | 2018-09-29 06:50 | NUR ---
EKG FOR A-FIB RVR 120'S. NOTED AFTER BREATHING TREATMENT INITIATED. BREATHING TREATMENT STOPPED.
--- NOTE | 2018-09-29 07:36 | NUR ---
HOSPITALIST PAGED TO INFORM ABOUT A-FIB
--- NOTE | 2018-09-29 07:36 | NUR ---
REPORT TO TORY CORBETT
[2018-09-29] MEDS: TACROLIMUS 0.5 MG PO SCH ×2 (07:39→21:11)
[2018-09-29] MEDS ORDERED: DILTIAZEM HCL 25 MG/5 ML VIAL IV ONE (07:45)
--- NOTE | 2018-09-29 08:00 | NUR ---
INITIAL/ONGOING ASSESSMENT; Patient sedated with Versed, refer to IV spreadsheet for dosing and infusion rates. Patient does not follow commands, eyes are open but are rolled back, no tracking noted. Fecal management system in place draining scant amount of liquid green stool. Patient does not appear to be in any distress. Per report patient had been running SR with frequent PVC's and had converted to A-fib. During physical assessment, patient self converted to SR with occasional PVC's rate 90's; will hold Cardizem dose at this time due to self rate and rhythm conversion. Patient's to bedside, informed her that there is grossly no change in patient condition and that physician is awaited to determine POC for the day. Spouse verbalized understanding.
--- NOTE | 2018-09-29 10:00 | NUR ---
ROUNDS: Medications administered as per orders. Patient with 2 small skin tears to right hand and left FA, wound photos taken, documentation tool filled out and placed in wound care file. Z-guard cream applied to each wound and optifoam gentle dressings applied to affected areas. Patient repositioned, oral care provided. concerned that patient need more sedation, informed her that his vital signs do not indicate distress and that the patient is tolerating mechanical ventilation well. Discussed with her this RN's concern over increasing Versed as this medication makes accurate neurological assessments difficult due to long half life, informed that plan is to request Fentanyl drip from attending physician and to transition patient from Versed to Fentanyl. verbalized understanding, reassured her that if patient appears to be in distress sedation will titrated accordingly.
[2018-09-29] MEDS: KETOTIFEN 0.025% OP SCH ×2 (10:19→21:11)
[2018-09-29] MEDS: PANTOPRAZOLE 40 MG/10 ML VIAL IV SCH ×2 (10:19→21:11)
[2018-09-29] MEDS: FILGRASTIM(TBO) 480 MCG/0.8 ML SYRG SC SCH (10:20)
[2018-09-29] MEDS: ENOXAPARIN SOD 30 MG/0.3 ML SYRINGE SC SCH (10:20)
--- NOTE | 2018-09-29 14:52 | NUR ---
Nutrition Follow-up Notes Wt.: 78.2 kg (per bed scale) Pt's in isolation room, sleeping with no family by bedside during rounds earlier. Pt's currently intubated, sedated, had dialysis on 09/28, remains NPO, no order for alternate nutrition support yet at this time, per nursing. Est. Needs based on IBW (70 kg): 1750 kcal to 2100 kcal (25-30 kcal/kgIBW), 70 gms to 98 gms pro (1.0-1.4 gms/kgIBW d/t severe hypoalbuminemia). Will continue to monitor pertinent labs and reassess nutrient need prn Labs: BUN 34 H, CREAT 1.81 H, CA 7.2 L, ALB 2.0 L Skin: Ylndon scale 7, high risk, pt's left wrist skin tear, non blanchable redness to sacrum per per bee raiser. Pls refer to salad counter attendant's notes for further details re: tx plans. GI: Pt has no BM reported with gastric drainage of 150 ml per bee raiser. PES: Altered nutrition related lab values r/t current/chronic medical condition aeb hyperglycemia, hyponatremia, elev. renal labs, low ALP, hypocalcemia and severe hypoalbuminemia Increased nutrient needs r/t current medical condition aeb intubated, sedated, severe hypoalbuminemia, NPO Will continue to monitor NPO status, skin status, pertinent labs and weight trend. F/u in 2 to 3 days Rec.: 1.) If still NPO, consider alternate nutrition support if medically appropriate. 2.) EN support preferred with formula choice of Nepro @ 45 ml/hr goal rate as tolerated-if pt continues on dialysis, per MD's approval. 3.) If Albumin level continues trending down, consider Prostat 1 pkt BID. 4.) Consider daily Nephrovite and Asc acid 500 mgs BID. 5.) Advance gradually to oral diet when medically appropriate. 6.) Refer to RD for further nutrition educ. and weight monitoring upon discharge. 7.) Continue current plan of care.
[2018-09-29] MEDS: FLUCONAZOLE 200MG/100ML 100 ML IV SCH ×2 (16:00→18:00)
[2018-09-29] MEDS: FUROSEMIDE INJECTION 250 MG in D5W 5% 225 ML IV SCH (16:15)
[2018-09-29] MEDS: LATANOPROST 0.005 % OPTH(EYE) SOL 2.5ML LEFTEYE SCH (18:00)
[2018-09-29 19:31] LABS: BUN/Creatinine Ratio 22.1; Calcium 7.5 mg/dL (8.5-10.1); Potassium 3.7 mmol/L (3.5-5.1)
--- NOTE | 2018-09-29 19:45 | NUR ---
Initial Assessment Patient received laying on bed on mechanical ventilation and sedation with no s/s of distress or pain. Opens eyes spontaneously but does not track or follow commands. oral care and suction provided-noted oral lesions to mouth with small pink-tinged oral secretions. HOB elevated greater than 30 degrees for aspiration precautions/VAP precautions. ETT secured with [place], ambu bag at bedside, ventilator plugged into red outlet. OGT connected to LIS draining green colored bile. RN verified proper placement via auscultation with air bolus. Abd soft. Generalized edema noted throughout entire body. F/C intact and draining to gravity. Multiple skin issues with dressings CDI. Noted weeping to BUE. Neurovascular status intact with palpable distal pulses. SCD's intact to BLE. Bed in lowest position, side rails up, bed brakes set, all alarms audible. All VSS, in direct view of nurses station.
--- NOTE | 2018-09-29 20:00 | NUR ---
Tube feeding Initiated Order to start Glucerna tube feeding with goal rate of 30ml/hour. HOB elevated greater than 30 degrees. Proper placement of OGT via auscultation with air bolus performed again. BS hypoactive x4 quadrants. Tube feeding initiated at 10ml/hour.
--- NOTE | 2018-09-29 20:10 | NUR ---
Dr. Stone paged left msg with answering exchange re:labs, UO, lasix. Waiting for call back.
--- NOTE | 2018-09-29 20:15 | NUR ---
Hospitalist paged re: HR/rhythm. Waiting for call back.
[2018-09-29] MEDS: NOREPINEPHRINE BITARTRATE 16 MG in D5W 5% 250 ML IV SCH (20:29)
--- NOTE | 2018-09-29 20:50 | NUR ---
Dr. delong called back informed of lab results and urine output. He ordered: -D/C lasix gtt -administer 40meq Potassium IV x1 RN performed TORB and verified orders to be correct. No additional orders received.
[2018-09-29] MEDS ORDERED: POTASSIUM CHL 20MEQ/100ML 200 ML IV ONE (20:56)
[2018-09-29] MEDS: POTASSIUM CHL 20MEQ/100ML 100 ML IV SCH ×2 (20:57→23:08)
--- NOTE | 2018-09-29 21:30 | NUR ---
Hospitalist call Informed of vital signs and cardiac rhythm. Tirso Cade, MARCOS ordered: -administer 125mcg Digoxin IV x1 dose RN performed TORB and MANAGER OF [employer]IED HE[facility] verified orders to be correct. No additional orders received.
[2018-09-29] MEDS ORDERED: DIGOXIN (250MCG/ML) 2 ML AMPULE IV ONE (22:00)
--- NOTE | 2018-09-29 23:00 | NUR ---
Eye care Bilateral eyes are penitentiary open at all times and are very erythematous. RN attempts to close eyes but they reopen non-purposefully. Moist sterile gauze pads placed over bilateral eyes to prevent eye damage.
--- NOTE | 2018-09-29 23:54 | NUR ---
Hospitalist paged re: HR/rhythm. Waiting for call back.
[2018-09-30] VITALS (82 sets, daily range): BP systolic 94–178; BP diastolic 51–105
--- NOTE | 2018-09-30 | NUR ---
Tube feeding Residuals checked and they are 50ml. Tube feeding remains at 10ml/hour.
[2018-09-30] MEDS: ALBUTEROL SULF 2.5 MG/0.5ML(0.5%) NEB SOLN NEB SCH ×4 (00:24→18:23)
[2018-09-30] MEDS: IPRATROPIUM BROM 0.5 MG/2.5ML INH SOL NEB SCH ×4 (00:24→18:23)
--- NOTE | 2018-09-30 01:45 | NUR ---
Hospitalist call informed of HR/Rhythm. He ordered: -administer another 125mcg of Digoxin IV x1 RN performed TORB and UX INTERACTION DESIGNER verified order to be correct. No additional orders received.
[2018-09-30] MEDS ORDERED: DIGOXIN (250MCG/ML) 2 ML AMPULE IV ONE (02:00)
--- NOTE | 2018-09-30 03:00 | NUR ---
Hygiene Patient given partial bed bath. All linens and gown changed. Patient tolerated well. Barrier cream re-applied to excoriated areas on perineal area.
[2018-09-30 03:37] LABS: Calcium 7.6 mg/dL (8.5-10.1); Potassium 4.2 mmol/L (3.5-5.1)
--- NOTE | 2018-09-30 04:00 | NUR ---
Tube feeding Tube feeding residual re-checked and it is 20ml. Tube feeding increased to 20ml/hour.
--- NOTE | 2018-09-30 04:00 | NUR ---
Hospitalist call Informed hospitalist of HR/Rhythm. No orders received at this time-continue to monitor.
[2018-09-30 04:20] LABS: Hematocrit 28.2 % (41.0-53.0); Red Blood Cells 2.97 10^6/uL (4.5-5.90)
[2018-09-30 04:22] LABS: Hemoglobin 9.8 g/dL (13.5-17.5); Mean Corpuscular Hemoglobin 32.9 pg (28.0-32.0); Mean Corpuscular Hgb Conc. 34.6 g/dL (32.0-36.0); Platelet Count (auto) 52 10^3/uL (140-450); Red Cell Distribution Width 15.1 % (11.8-14.3); White Blood Cell 2.4 10^3/uL (4.4-10.8)
[2018-09-30 05:11] LABS: Basophils % (manual) 0 (0.0-2.0); Blast Cells 0; Eosinophils % (manual) 0 (0-7); Metamyelocytes % 0; Myelocytes % 0; Promyelocytes % 0; Reactive Lymphocytes 0
[2018-09-30] MEDS: InsuLIN REG 1unit/0.01ml Soln (100units/ml) SC SCH ×3 (05:13→18:00)
[2018-09-30] MEDS: ACCU-CHEK COMFORT CURVE STRIP VI SCH ×3 (05:13→18:00)
[2018-09-30] MEDS: MEROPENEM 1GM IVPB 100 ML IV SCH ×3 (05:18→22:12)
[2018-09-30] MEDS: methylPREDNISolone SOD SUCC 40 MG/ML VL IV SCH ×3 (05:18→18:00)
--- NOTE | 2018-09-30 05:34 | NUR ---
Hospitalist paged re: HR remains elevated. Waiting for call back.
--- NOTE | 2018-09-30 07:12 | NUR ---
Report given No changes or incidents to report. Care endorsed to day shift RN.
--- NOTE | 2018-09-30 08:00 | NUR ---
INITIAL/ONGOING ASSESSMENT: Patient remains sedated with Versed, rate 4 mg/hr; patient continues to have no response to deep painful stimulus. Plan to decrease sedation as tolerated. Noted that patient is yawning frequently and chewing on ETT. Eyes remain partial open, moistened gauze applied over eyes to prevent dryness. Patient with enteral feedings infusing at 20 mr/hr, 5 mL of residual aspirated. Large amount of leakage from around fecal management tube, partial linen change and skin care provided. Patient noted to have rectal excoriation vs incontinence related skin breakdown, Z-guard applied to affected area. Oral care provided. All assessments completed and documented in the appropriate flow-sheets.
[2018-09-30 08:15] LABS: Band Neutrophils % (manual) 27; Lymphocytes % (manual) 20 (10.0-50.0); Monocytes % (manual) 22 (0-12)
--- NOTE | 2018-09-30 09:00 | NUR ---
AT BEDSIDE: Dr. Stone at bedside, evaluated patient. No further orders at this time.
[2018-09-30] MEDS: ENOXAPARIN SOD 30 MG/0.3 ML SYRINGE SC SCH (10:39)
[2018-09-30] MEDS: FILGRASTIM(TBO) 480 MCG/0.8 ML SYRG SC SCH (10:39)
[2018-09-30] MEDS: KETOTIFEN 0.025% OP SCH ×2 (10:40→22:12)
[2018-09-30] MEDS: TACROLIMUS 0.5 MG PO SCH ×2 (10:40→20:30)
[2018-09-30] MEDS: PANTOPRAZOLE 40 MG/10 ML VIAL IV SCH ×2 (10:40→22:12)
--- NOTE | 2018-09-30 10:45 | NUR ---
ROUNDS: Sedation decreased further, patient remains non-responsive. Residual assessed only 5 mL aspirated via NGT, continue feedings at 20 mL/hr at this time.
--- NOTE | 2018-09-30 16:00 | NUR ---
AT BEDSIDE: Dr. Argueta at bedside. expressed to Dr. Argueta concern that patient is not adequately sedated and that he has his eyes open. Informed Dr. Argueta that during rounds yesterday plan for weaning trial was mentioned and that sedation was weaned down in preparation. Informed him that patient has not been displaying signs of distress and has been tolerating the ventilator without issue. Also informed him that this nurse was concerned that due Versed being the current sedation that the patient may have a delayed awakening. Discussed with Dr. Argueta that patient has no pain medication ordered and that analgesia may be beneficial, orders received. Dr. Argueta discussed with that opening of the eyes is not a critical finding and that this is to be expected when weaning patient off of sedation. After rounds completed the following discussion took place with patient's . Linh was informed that this RN has the best of the patient in mind when making decisions regarding care. Informed her that the medication the patient is receiving for sedation has an extended half life and takes longer to metabolize in older patient's, especially those with organ dysfunction. Discussed with her that the intention of weaning sedation is to try to ensure that the patient will be neurologically appropriate if and when those orders are received. Also discussed with her that this nurse could not find documentation that the patient has been neurologically intact and able to follow commands this admission, and that reduction of sedation will allow for appropriate and accurate neuro assessment. Discussed with her that this nurse has been trying to get order for pain medication to make the sedation reduction process more comfortable for the patient. verbalized understanding. Linh states that she does not want to see the patient uncomfortable, and that she does not want him to suffer. Education provided regarding weaning process, informed her that unfortunately the patient will at times appear uncomfortable and that coughing and gagging are normal findings and does not always indicate distress. will continue to require frequent and through re-education.
[2018-09-30] MEDS ORDERED: HYDROmorphone HCL 2 MG/ML VL ONE (16:13)
[2018-09-30] MEDS ORDERED: HYDROmorphone HCL 2 MG/ML VL IV PRN (16:15)
[2018-09-30] MEDS: LEVOFLOXACIN 750MG 150 ML IV SCH (16:23)
[2018-09-30] MEDS: LATANOPROST 0.005 % OPTH(EYE) SOL 2.5ML LEFTEYE SCH (18:00)
[2018-09-30] MEDS: FLUCONAZOLE 200MG/100ML 100 ML IV SCH (18:00)
--- NOTE | 2018-09-30 18:30 | NUR ---
LAST ROUNDS: Entered room for final rounds. Found that patient's ETT securement device has had the adhesive portion removed from the face, leaving ETT no longer properly secured. Patient's only person in room prior to last rounds. Patient's has been repeated educated on need for securement device to ensure proper placement of ETT. RT is aware of issue and will replace device. Will inform night stocker RN that family inappropriately adjust lines and devices.
--- NOTE | 2018-09-30 19:30 | NUR ---
ASSESSMENT: PT. OPEN EYES SPONTANEOUSLY, DOES NOT TRACK. PUPILS 3+ BILATERALLY. DOES NOT MOVE EXTREMITIES, EDEMA 3+ GENERALIZED. OPENS MOUTH, YAWN, FROWNS. CARDIAC - SINUS RHYTHM 100'S, IRREGULAR. STRONG RADIAL AND PEDAL PULSES BILAT. SKIN WARM AND DRY BUT VERY MOIST DUE CONTINUOUS WEEPING OF SEROUS FLUIDS FROM EXTREMITIES. BILATERAL FOREARM WITH REDNESS AND BLACK DISCOLORATION, ARMS PADDED BILATERALLY TO ASSIST WITH MOISTURE. LUNGS CLEAR UPPER LOBES, DIMINISHED AT BASES, SATS 97%. HOLISTER BURDEN OFF PATIENT AT THIS TIME, R.T AWARE AND WILL REPLACE. ETT AT THIS TIME 23 CM AT LIP LINE. TV - 500'S ON ASSISTED BREATHS. ABDOMEN - LARGE, HYPOACTIVE BOWEL SOUNDS, GLUCERNA INFUSING THRU OGT. 20 CC RESIDUAL. PETERS CATH TO DD WITH CLEAR, YELLOW URINE, LARGE AMT. OF EDEMA TO SCROTUM AND PENIS WITH SMALL SKIN BREAKDOWN NOTED AT TIP. WILL CONTINUE TO MONITOR. CENTRAL LINES TO RIJ FOR IVF AND DRIPS INTACT. ERMA CATH TO LEFT IJ INTACT. ALL EXTREMITIES ELEVATED VERSED AT 2 MG/HR
[2018-09-30] MEDS: NOREPINEPHRINE BITARTRATE 16 MG in D5W 5% 250 ML IV SCH (20:29)
[2018-10-01] VITALS (95 sets, daily range): BP systolic 115–177; BP diastolic 61–106
--- NOTE | 2018-10-01 | NUR ---
EYES OPEN, TRACKS. DOES NOT FOLLOW ANY COMMANDS.
[2018-10-01] MEDS: methylPREDNISolone SOD SUCC 40 MG/ML VL IV SCH ×5 (00:02→22:05)
[2018-10-01] MEDS: ACCU-CHEK COMFORT CURVE STRIP VI SCH ×4 (00:08→17:38)
[2018-10-01] MEDS: ALBUTEROL SULF 2.5 MG/0.5ML(0.5%) NEB SOLN NEB SCH ×4 (00:10→18:40)
[2018-10-01] MEDS: IPRATROPIUM BROM 0.5 MG/2.5ML INH SOL NEB SCH ×4 (00:10→18:40)
--- NOTE | 2018-10-01 04:00 | NUR ---
COMPLETE BED BATH
[2018-10-01 04:26] LABS: Hematocrit 27.1 % (41.0-53.0); Hemoglobin 9.5 g/dL (13.5-17.5); Mean Corpuscular Hemoglobin 33.4 pg (28.0-32.0); Mean Corpuscular Hgb Conc. 35.3 g/dL (32.0-36.0); Mean Corpuscular Volume 94.7 fL (80.0-100.0); Platelet Count (auto) 39 10^3/uL (140-450); Red Blood Cells 2.86 10^6/uL (4.5-5.90); Red Cell Distribution Width 15.2 % (11.8-14.3); White Blood Cell 2.2 10^3/uL (4.4-10.8)
[2018-10-01 04:30] LABS: Potassium 4.5 mmol/L (3.5-5.1)
[2018-10-01 04:44] LABS: Albumin 2.3 g/dL (3.4-5.0); BUN/Creatinine Ratio 33.5; Bilirubin, Total 0.5 mg/dL (0.2-1.0); Calcium 8.1 mg/dL (8.5-10.1); Magnesium 1.9 mg/dL (1.6-2.6); Total Protein 4.7 g/dL (6.4-8.2)
[2018-10-01 04:57] LABS: Basophils % (manual) 0 (0.0-2.0); Blast Cells 0; Eosinophils % (manual) 0 (0-7); Myelocytes % 0; Promyelocytes % 0
[2018-10-01] MEDS: InsuLIN REG 1unit/0.01ml Soln (100units/ml) SC SCH ×4 (05:22→17:41)
[2018-10-01] MEDS: MEROPENEM 1GM IVPB 100 ML IV SCH ×3 (06:00→22:05)
--- NOTE | 2018-10-01 06:00 | NUR ---
CONTINUES ON VERSED 2 MG. EYES OPEN, NOT FOLLOWING COMMANDS. TUBE FEEDING 30CC/HR. NO RESIDUAL. SBP 150'S. IN AND OUT OF SINUS TACH TO A-FIB. SATS 100%, LUNGS CLEAR UPPER LOBES, DIMINISHED AT BASES.
--- NOTE | 2018-10-01 06:30 | NUR ---
DRESSING CHANGE TO ERMA CATH AND RIGHT IJ CENTRAL LINE.
[2018-10-01 06:41] LABS: Band Neutrophils % (manual) 28; Lymphocytes % (manual) 4 (10.0-50.0); Metamyelocytes % 3; Monocytes % (manual) 15 (0-12); Reactive Lymphocytes 1
--- NOTE | 2018-10-01 07:44 | NUR ---
REPORT GIVEN TO ALFONSO CORBETT
--- NOTE | 2018-10-01 07:45 | NUR ---
ASSESS- PT. LYING IN BED ON VENT SIZE# 8.0, 24 AT THE LIP, AC-16, TV-500, PEEP-5, FIO2-30%. LUNGS CLEAR PAOLA. INSPIRATORY AND EXPIRATORY, DIMINISHED BASES PAOLA. PT. HAS HYPOACTIVE GAG/COUGH REFLEX. RESPONDS TO PAINFUL/TACTILE STIMULI. ON VERSED GTT. AT 2MG./HR. NO MOVEMENT OF EXTREMITIES SEEN. OGT IN PLACE WITH GLUCERNA AT 30 CC/HR. BOWEL SOUNDS HYPOACTIVE ALL FOUR QUADRANTS. NO EMESIS. ABD. SOFT, ROUND. F/C TO GRAVITY WITH CLEAR YELLOW URINE. FLEXISEAL TO GRAVITY WITH GREEN LIQUID STOOL. PAOLA. ARMS SWOLLEN WITH 2 PLUS EDEMA, WEEPING SM. AMOUNT, ON CHUX. 2 PLUS EDEMA FT./ANKLES PAOLA. ERMA CATHETER LT. IJ IN PLACE WITH DSG. D/I. TLC RT. IJ INTACT, CVP ZEROED, READING 5. RT. HAND WITH SKIN TEAR WITH OPTIFOAM DSG. RT. FOREARM WITH SKIN TEAR WITH OPTIFOAM DSG. D/I. LT. FOREARM WITH SKIN TEAR WITH OPTIFOAM DSG. D/I. SACRUM WITH OPTIFOAM DSG. D/I. SCROTOM SWOLLEN AND PENIS.
--- NOTE | 2018-10-01 08:35 | NUR ---
I called patient's primary nurse Kamini regarding possible transfer to [facility], she will give me a call back.
--- NOTE | 2018-10-01 09:30 | NUR ---
AUSCULTATED GOOD PLACEMENT WITH OGT. NO EMESIS. NO RESIDUAL FROM TF. TOLERATING GLUCERNA AT 30 CC/HR.
[2018-10-01] MEDS: MIDAZOLAM DRIP 50 mg/50mL 50 ML IV SCH ×2 (09:40→14:03)
[2018-10-01] MEDS: PANTOPRAZOLE 40 MG/10 ML VIAL IV SCH ×2 (09:45→22:05)
[2018-10-01] MEDS: TACROLIMUS 0.5 MG PO SCH ×2 (09:45→21:09)
[2018-10-01] MEDS: ENOXAPARIN SOD 30 MG/0.3 ML SYRINGE SC SCH (09:45)
--- NOTE | 2018-10-01 09:45 | NUR ---
Family updated on pt status Family of HALIMATIA updated on patient's status and condition. All questions and concerns addressed. verbalized understanding. VISITING AT THE BS.
[2018-10-01] MEDS: FILGRASTIM(TBO) 480 MCG/0.8 ML SYRG SC SCH (09:46)
[2018-10-01] MEDS: KETOTIFEN 0.025% OP SCH ×2 (09:47→21:09)
--- NOTE | 2018-10-01 10:00 | NUR ---
CALLED DAVE IN [place] AND LET HER KNOW PT'S. WANTS TO SPEAK WITH FIRST TO SEE IF PT. IS GOING TO HAVE A CPAP TRIAL TODAY AND STABLE FOR TRANSFER TO [facility].
--- NOTE | 2018-10-01 11:40 | NUR ---
DR. MORRIS Provider/Hospitalist at bedside. GAVE UPDATE ON PT. SPOKE WITH PT'S. . NEW ORDERS RECEIVED.
--- NOTE | 2018-10-01 12:15 | NUR ---
SIGNED CONSENT FOR PT. TO BE TRANSFERRED TO [facility]. REQUESTING PT. GO TO [place] IN [place] WHERE HIS PROJECT MANAGEMENT ADVISOR IS. LEFT MESSAGE FOR DAVE IN TRANSPORTATION DEPARTMENT SUPERVISOR AND LET HER KNOW IS HERE AND WOULD LIKE TO SPEAK WITH HER.
--- NOTE | 2018-10-01 13:05 | NUR ---
DR. CEE Provider/Hospitalist at bedside.
[2018-10-01] MEDS ORDERED: MAGNESIUM SULFATE 1GM/100ML 100 ML IV ONE (13:15)
--- NOTE | 2018-10-01 13:51 | NUR ---
I faxed transfer order to [facility]. I spoke with patient's to let her know that [facility] will place him in which ever facility has a bed available, I did tell her that I would let them know about her request for [facility] because that is where he had his transplant.
--- NOTE | 2018-10-01 15:00 | NUR ---
DR. LYNN Provider/Hospitalist at bedside.
[2018-10-01] MEDS: FLUCONAZOLE 200MG/100ML 100 ML IV SCH (16:12)
--- NOTE | 2018-10-01 16:45 | NUR ---
BOBY, RT DID ABG ON NEW VENT SETTINGS AND WERE OK. CHANGED PT. TO SIMV-12, PS-8, PEEP-5, FIO2-30% ORDERED BY DR. CEE. PT'S. RR INCREASED TO UPPER 20'S-30'S IMMEDIATELY. O2 SATS UPPER 90'S. AFTER 3 MIN. RT PLACED PT. BACK ON AC MODE PREVIOUS SETTINGS.
--- NOTE | 2018-10-01 16:46 | NUR ---
I called [facility] [phone] to verify that they are working on the transfer and was left on hold for 30 minutes with no one answering the phone.
--- NOTE | 2018-10-01 16:50 | NUR ---
ANNE-MARIE FROM [facility] CALLED. GAVE UPDATE ON PT. SPOKE WITH PT'S. ON THE PHONE. NEEDS TO SPEAK WITH DR. CEE REGARDING TRANSFER OF PT. GAVE MD'S OFFICE # TO CALL.
[2018-10-01] MEDS: LATANOPROST 0.005 % OPTH(EYE) SOL 2.5ML LEFTEYE SCH (17:33)
--- NOTE | 2018-10-01 18:40 | NUR ---
Respiratory note: RECEIVED PT ON VENT V21, PT IS ETT TO VENT. VENT CONNECTED TO RED OUTLET AND O2 SOURCE. ALARMS ARE SET AND AUDIBLE AMBU BAG AND MASK AT BEDSIDE. BS ARE FINE COURSE. SXD SMALL THICK MARAVILLA. MED NEB TX GIVEN INLINE WITHOUT ADVERSE REACTION. RT NAME AND PAGER ASSIGNMENT WRITTEN ON PTS ROOM BOARD.
--- NOTE | 2018-10-01 20:00 | NUR ---
ASSESSMENT: VENTED - 30% FIO2, TV 500, RATE 12, PEEP +5. SATS 97%. LUNGS CLEAR BILAT. NO SECRETIONS WHEN TRACH SUCTIONED. THIN ORAL SECRETIONS DURING ORAL CARE. HR 113, IRREGULAR AFIB. SBP 123/71.3 CONTINUES ON VERSED AT 5 MG/HR, PT. WAKES UP TO STIMULI BUT DOES NOT FOLLOW COMMANDS. FRED. EYES RED REPOSITIONED RIGHT WITH X2 ASSIST. TUBE FEEDING RESIDUAL 10 CC, GLUCERNA AT 30CC/HR. FLEXI SEAL IN PLACE. PETERS TO DD WITH CLEAR, YELLOW URINE. SKIN DRY, WARM AND FLAKY. EDEMA 2+. WILL CONTINUE TO WATCH
--- NOTE | 2018-10-01 20:09 | NUR ---
Respiratory note: AT BEDSIDE FOR ROUTINE VENT CHECK NO CHANGES MADE AT THIS TIME. CHELLE RHODES AT BEDSIDE.
--- NOTE | 2018-10-01 20:14 | NUR ---
Respiratory note: AT BEDSIDE FOR ROUTINE VENT CHECK NO CHANGES MADE AT THIS TIME. BS ARE FINE COURSE IN BASES. SXD SCANT THICK MARAVILLA.
[2018-10-02] VITALS (105 sets, daily range): BP systolic 103–150; BP diastolic 51–93
[2018-10-02] MEDS: IPRATROPIUM BROM 0.5 MG/2.5ML INH SOL NEB SCH ×4 (00:21→19:09)
[2018-10-02] MEDS: ALBUTEROL SULF 2.5 MG/0.5ML(0.5%) NEB SOLN NEB SCH ×4 (00:21→19:09)
--- NOTE | 2018-10-02 00:21 | NUR ---
Respiratory note: AT BEDSIDE FOR ROUTINE VENT CHECK. NO VENT CHANGES MADE SX MAHAJAN CHANGED AT THIS TIME.MED NEB TX GIVEN INLINE WITHOUT ADVERSE REACTION NOTED. WILL CONTINUE TO MONITOR
--- NOTE | 2018-10-02 02:20 | NUR ---
Respiratory note: AT BEDSIDE FOR ROUTINE VENT CHECK. NO VENT CHANGES MADE. WILL CONTINUE TO MONITOR.
--- NOTE | 2018-10-02 04:10 | NUR ---
Respiratory note: END OF SHIFT VENT CHECK NO CHANGES MADE. WILL HAVE DAY SHIFT CONTINUE PLAN OF CARE.
[2018-10-02] MEDS: MIDAZOLAM DRIP 50 mg/50mL 50 ML IV SCH (05:34)
[2018-10-02] MEDS: InsuLIN REG 1unit/0.01ml Soln (100units/ml) SC SCH ×3 (05:34→12:09)
[2018-10-02] MEDS: ACCU-CHEK COMFORT CURVE STRIP VI SCH ×3 (05:35→12:09)
[2018-10-02] MEDS: MEROPENEM 1GM IVPB 100 ML IV SCH ×2 (05:35→13:35)
[2018-10-02] MEDS: methylPREDNISolone SOD SUCC 40 MG/ML VL IV SCH ×2 (05:35→13:35)
[2018-10-02 05:40] LABS: Hematocrit 30.2 % (41.0-53.0); Hemoglobin 10.3 g/dL (13.5-17.5)
[2018-10-02 05:42] LABS: Mean Corpuscular Hemoglobin 32.6 pg (28.0-32.0); Red Blood Cells 3.14 10^6/uL (4.5-5.90); White Blood Cell 4.4 10^3/uL (4.4-10.8)
[2018-10-02 05:46] LABS: Basophils % (manual) 0 (0.0-2.0); Blast Cells 0; Eosinophils % (manual) 0 (0-7); Metamyelocytes % 0; Myelocytes % 0; Platelet Count (auto) 41 10^3/uL (140-450); Promyelocytes % 0; Reactive Lymphocytes 0
[2018-10-02 06:05] LABS: Albumin 2.3 g/dL (3.4-5.0); Calcium 8.4 mg/dL (8.5-10.1); Magnesium 2.1 mg/dL (1.6-2.6); Potassium 4.8 mmol/L (3.5-5.1)
[2018-10-02 06:07] LABS: BUN/Creatinine Ratio 41.3
[2018-10-02 06:11] LABS: Bilirubin, Total 0.5 mg/dL (0.2-1.0)
--- NOTE | 2018-10-02 07:18 | NUR ---
REPORT TO [facility]
--- NOTE | 2018-10-02 08:00 | NUR ---
SBAR REPORT RECEIVED FROM [facility] SHIFT FOR CONTINUITY OF CARE. SEE FLOWSHEET FOR DETAILED ASSESSMENT. VSS.
[2018-10-02 08:24] LABS: Band Neutrophils % (manual) 18; Lymphocytes % (manual) 32 (10.0-50.0); Monocytes % (manual) 17 (0-12)
--- NOTE | 2018-10-02 08:34 | NUR ---
I called [facility] [phone] and spoke with service delivery analyst Jaja, she said patient was not transferred to [facility] yesterday because they had no accepting physician there, they authorized patient's stay yesterday 10/01/18-ref number [id number] asked her about authorization for the last few days because we have not received anything, she said I would have to speak with the catalytic case operator about that and they do not come in until 930am-she will have the assigned catalytic case operator give me a call.
--- NOTE | 2018-10-02 09:00 | NUR ---
PT'S WIDE AT BEDSIDE. UPDATED WITH POC. NO FURTHER QUESTIONS AT THIS TIME, VERBALIZED UNDERSTANDING AT THIS TIME.
--- NOTE | 2018-10-02 09:21 | NUR ---
I faxed transfer order to [facility] along with updated clinical information including vitals, medication list, xrays, labs and MD progress notes.
--- NOTE | 2018-10-02 09:53 | NUR ---
I spoke with [facility] [employer]seas [phone], he is working on the transfer to [facility]-he said the patient's stay continues to be authorized-there are no denial days. I spoke with patient's primary nurse regarding the status of the transfer, she will call me when she verifies who the attending MD is today.
[2018-10-02] MEDS ORDERED: ENOXAPARIN SOD 30 MG/0.3 ML SYRINGE SC SCH (10:00)
[2018-10-02] MEDS: PANTOPRAZOLE 40 MG/10 ML VIAL IV SCH (10:00)
[2018-10-02] MEDS: TACROLIMUS 0.5 MG PO SCH (10:00)
[2018-10-02] MEDS: KETOTIFEN 0.025% OP SCH (10:00)
[2018-10-02] MEDS: LEVOFLOXACIN 750MG 150 ML IV SCH (10:00)
[2018-10-02] MEDS: FILGRASTIM(TBO) 480 MCG/0.8 ML SYRG SC SCH (10:00)
--- NOTE | 2018-10-02 10:37 | NUR ---
I placed a page out to Dr. Zhang to discuss the plan of care for this patient.
--- NOTE | 2018-10-02 10:48 | NUR ---
I spoke with patient's primary nurse who let me know that Dr. Hare would be seeing the patient today-he is aware of the previous order to transfer to [facility]-I provided [facility] [employer] Oseas with the cell phone contact information to Dr. Hare (with Dr. Hare's permission)-and asked him to give time for MD to see patient. Oseas will connect the MD's and give me a call back.
--- NOTE | 2018-10-02 11:16 | NUR ---
[facility] UPDATED WITH PT INFORMATION AT THIS TIME. PER ANNE-MARIE ([facility]), THEY ARE WORKING ON GETTING PT TRANSFERRED OUT TODAY. UPDATED FAMILY (PT'S ) AT BEDSIDE WITH UPDATED POC. MD GARCIA AWARE OF PENDING TRANSFER AND WILL FOLLOWUP ACCORDINGLY.
--- NOTE | 2018-10-02 12:00 | NUR ---
MD GARCIA AT BEDSIDE. UPDATED MD WITH PT OVERALL STATUS INCLUDING ABNORMAL LAB VALUES. NO NEW ORDERS AT THIS TIME. MD AWARE OF PENDING TRANSFER TO [facility].S. FAMILY AT BEDSIDE WAS UPDATED WITH POC. NO FURTHER QUESTION FROM PT'S AT THIS TIME.
--- NOTE | 2018-10-02 12:51 | NUR ---
Nutrition Follow-up Notes Wt.: 78.2 kg Pt's intubated, sedated, had dialysis on 09/28, remains NPO, with EN support with Glucerna @ 30 ml/hr providing 864 kcals and 43 gm proteins. pt with inadequate EN support as it meets 41-49% kcals and 43-61% proteins. per records pt tolerating TF well with 5 ml residue noted Est. Needs based on IBW (70 kg): 1750 kcal to 2100 kcal (25-30 kcal/kgIBW), 70 gms to 98 gms pro (1.0-1.4 gms/kgIBW d/t severe hypoalbuminemia). Will continue to monitor pertinent labs and reassess nutrient need prn Labs: BUN 71 H, CREAT 1.72 H, GLU 174 H, CA 8.4 L, ALB 2.3 L Skin: Lyndon scale 7, high risk, pt's left wrist skin tear, non blanchable redness to sacrum per per network associate. Pls refer to fruit and vegetable packer's notes for further details re: tx plans. GI: Pt lazcano 150 ml BM yesterday per network associate. PES: Altered nutrition related lab values r/t current/chronic medical condition aeb hyperglycemia, hyponatremia, elev. renal labs, low ALP, hypocalcemia and severe hypoalbuminemia Increased nutrient needs r/t current medical condition aeb intubated, sedated, severe hypoalbuminemia, NPO Will continue to monitor NPO status, EN tolerance, skin status, pertinent labs and weight trend. F/u in 2 to 3 days Rec.: 1.) Consider EN support with Nepro @ 45 ml/hr goal rate as tolerated IF pt continues on dialysis, per MD's approval instead of Glucerna. 2) If pt off HD consider to advanced EN support with Glucerna @ 65 ml./hr per MD approval 3.) If Albumin level continues trending down, consider Prostat 1 pkt BID. 4.) Consider daily Nephrovite and Asc acid 500 mgs BID. 5.) Advance gradually to oral diet when medically appropriate. 6.) Refer to RD for further nutrition educ. and weight monitoring upon discharge. 7.) Continue current plan of care.
--- NOTE | 2018-10-02 13:47 | NUR ---
MD GARCIA AT BEDSIDE. UPDATED MD WITH TRANSFER INFO. MD ATTEMPTED TO CALL [facility] TO SPEAK WITH ACCEPTING PHYSICIAN BUT WAS UNSUCCESSFUL. I TRIED PERSONALLY CALLING TO GET IN TOUCH WITH ACCEPTING MD FOR MD GARCIA BUT THIS TOO WAS UNSUCCESSFUL. WILL CONTINUE TO FOLLOWUP ON TRANSFER STATUS.VSS.
--- NOTE | 2018-10-02 15:37 | NUR ---
I called [facility] [employer] [facility]se[facility] [phone] and there was no answer-reverted back to general [facility] phone number ([phone]), waiting on hold to speak with returned case inspector about MD to MD contact for transfer, will continue to wait.
[2018-10-02] MEDS: FLUCONAZOLE 200MG/100ML 100 ML IV SCH (16:05)
--- NOTE | 2018-10-02 16:05 | NUR ---
After waiting on hold for more than 25 minutes [facility] internet marketing analyst May answered the phone, she said that their MD spoke with our MD and they are waiting for a bed for this patient at [facility].
--- NOTE | 2018-10-02 18:36 | NUR ---
ATTEMPTED TO GIVE SBAR TO [facility] RN SRI (RN NOT AVAILABLE AT THIS TIME AND STATES HE WILL CALL BACK FOR REPORT). INFO FOR TRANSFER... [facility] ACCEPTING [facility][id number] (ICU) NUMBER FOR REPORT ([phone]) [employer] (CATERING SALES MANAGER) FOR [facility] CONTACT [phone] ETA FOR TRANSPORT IS APPROXIMATELY 8PM CECIL UPDATED WITH NEW INFO AND AWARE OF TRANSFER.
--- NOTE | 2018-10-02 19:03 | NUR ---
SBAR REPORT GIVEN TO SRI [facility] RN AT THIS TIME.
--- NOTE | 2018-10-02 20:00 | NUR ---
ASSESSMENT: PT'S AT BEDSIDE. AWAITING TRANSFER TO [facility]. PT. CONTINUES SEDATED ON VERSED AT 6 GM/HR AND INTUBATED TV 500, RATE 12. FIO2 30%, PEEP +5. SATS 98%. LUNGS CLEAR UPPER LOBES, WITH MINIMAL SECRETIONS FROM ETT. CARDIAC - ATRIAL FLUTTER 110'S. SBP 110'S - 150'S. ABDOMEN - FLAT, HYPOACTIVE BOWEL SOUNDS. TUBE FEEDING GLUCERNA AT 30CC/HR, 5 CC RESIDUAL. FLEXI SEAL NO OUTPUT AT THIS TIME. PETERS TO DD WITH CLEAR, YELLOW URINE. SKIN - EDEMATOUS, 2+, WITH BREAKDOWN AND TEARS PER FLOW SHEET. BOTH CENTRAL LINE TO RIJ AND LIJ WITH LOOSE, MOIST DRESSING, WILL CHANGE PRIOR TO TRANSFER.
--- NOTE | 2018-10-02 20:30 | NUR ---
CENTRAL AND ERMA DRESSING CHANGED. PT. SHAVED
--- NOTE | 2018-10-02 21:00 | NUR ---
CALL [facility] FOR UPDATE ON ARRIVAL TO UNIT FOR TRANSFER, 1 HR.
--- NOTE | 2018-10-02 22:06 | NUR ---
CALL RECEIVED FROM PT'S REGARDING COLD ROLL INSPECTOR TIME, UPDATED.
--- NOTE | 2018-10-02 23:00 | NUR ---
[facility] HERE FOR TRANSPORT TO [facility]. [facility] INFORMED OF TRAVEL TIME.
--- NOTE | 2018-10-02 23:26 | NUR ---
PT. TRANSPORTED VIA [facility]. ALL HOME MEDS PACKED AND PROVIDED TO BUSINESS INFORMATION ANALYST WELL PT'S OWN NECK PILLOW.
== END 2018-10-02 23:29 | disposition short-term general hospital (02) | DRG 870 ==
LOC: ER 09:00 → TELE 11:54 → ICU WEST 09-23 18:40
PROVIDERS: ADMIT Internal Medicine; ATTEND Internal Medicine Pulmonary Disease
PROC: 02HV33Z Insertion of Infusion Device into Superior Vena Cava, Percutaneous Approach (ICD-10-PCS; principal; 2018-09-21)
PROC: 5A1955Z Respiratory Ventilation, Greater than 96 Consecutive Hours (ICD-10-PCS; 2018-09-21)
PROC: 0BH17EZ Insertion of Endotracheal Airway into Trachea, Via Natural or Artificial Opening (ICD-10-PCS; 2018-09-21)
PROC: 30233N1 Transfusion of Nonautologous Red Blood Cells into Peripheral Vein, Percutaneous Approach (ICD-10-PCS; 2018-09-26)
DX: A41.01 Sepsis due to Methicillin susceptible Staphylococcus aureus (principal); J96.21 Acute and chronic respiratory failure with hypoxia; G93.41 Metabolic encephalopathy; N17.0 Acute kidney failure with tubular necrosis; R65.21 Severe sepsis with septic shock; J96.22 Acute and chronic respiratory failure with hypercapnia; J69.0 Pneumonitis due to inhalation of food and vomit; Z94.2 Lung transplant status; E44.0 Moderate protein-calorie malnutrition; D61.818 Other pancytopenia; E87.1 Hypo-osmolality and hyponatremia; E87.4 Mixed disorder of acid-base balance; I13.0 Hypertensive heart and chronic kidney disease with heart failure and stage 1 through stage 4 chronic kidney disease, or unspecified chronic kidney disease; D63.8 Anemia in other chronic diseases classified elsewhere; Z99.81 Dependence on supplemental oxygen; H40.9 Unspecified glaucoma; I50.9 Heart failure, unspecified; N18.3 Chronic kidney disease, stage 3 (moderate); F32.9 Major depressive disorder, single episode, unspecified; M10.9 Gout, unspecified; E11.65 Type 2 diabetes mellitus with hyperglycemia; Z79.899 Other long term (current) drug therapy; Z68.21 Body mass index [BMI] 21.0-21.9, adult
CPT/HCPCS: 31500; 36415; 36556; 36600; 71045; 74176; 76775; 80048; 80053; 80074; 80076; 80197; 81001; 82270; 82570; 82728; 82805; 82962; 83010; 83036; 83540; 83550; 83605; 83615; 83735; 83880; 84156; 84484; 85007; 85014; 85018; 85027; 85045; 85379; 85384; 85610; 85730; 86644; 86645; 86850; 86880; 86900; 86901; 86920; 87040; 87070; 87077; 87081; 87086; 87186; 87205; 87804; 90935; 93005; 93306; 94003; 94640; 96361; 96365; 96367; 96375; 99291; A4618; A6257; C9113; G0378; J0610; J0885; J1447; J1450; J1642; J1815; J1956; J2185; J2250; J2543; J2704; J3480; J3490; J7060; P9047